=== PATIENT | female | born 1950 | race Caucasian/White ===

== ENCOUNTER 2019-03-31 23:00 | Inpatient (IN) | payer MEDICARE, OTHER, SELFPAY ==
[2019-03-31 23:04] VITALS: BP 158/97; PULSE 74; RESP 20; TEMP 36.4; O2SAT 95; BMI 29.9
--- NOTE | 2019-03-31 23:06 | ED_ITS ---
Entered by Nora Mancini, acting as scribe for Carmen Mathew HPI - Chest Pain General: Chief Complaint: Chest Pain Stated Complaint: cp Time Seen by Provider: 03/31/19 23:07 Source: patient Mode of arrival: ambulatory Limitations: no limitations History of Present Illness: HPI narrative: 69 yo f came to the er pov with family. Onset was tonight. Pt states that the last couple nights she has had some chest pain and some weakness in both arms. Pt states that she thought that it was somthing that she had been eating. Pt states that she was dripping sweat and was nauseated. Pt states that she was setting down eating. MD complaint: chest pain and other (jaw and arm pain) Onset (ago): day(s) (today) Onset: during rest Pain radiation: neck and jaw/teeth Severity: mild Pain scale (0-10): 4 Quality: aching Relieving factors: nothing Exacerbating factors: nothing Associated symptoms: Reports nausea; Deny abdominal pain, diaphoresis, dyspnea, fever(s), palpitations, syncope or vomiting Risk Factors: Coronary artery disease risk factors: none Related Data: On Oral Contraceptives: No Review of Systems General: Reports: other (negative unless marked) Const: Denies: fever, chills, body aches, fatigue, malaise or diaphoresis Eyes: Denies: change in vision or blurry vision ENMT: Denies: throat pain, painful swallowing, hoarseness, ear pain, ear discharge, Change in hearing or nasal discharge Card: Reports: chest pain; Denies: palpitations, irregular heart rhythm, syncope, pre-syncope, shortness of breath on exertion or shortness of breath when lying down Resp: Denies: shortness of breath, productive cough, non-productive cough, wheezing, coughing up blood or chest congestion GI: Reports: nausea; Denies: abdominal pain, vomiting, vomiting blood, coffee grounds in vomit, diarrhea, constipation, cramping, blood in stool or black tarry stool : Reports: flank pain; Denies: painful urination, urinary frequency, urinary urgency, decreased urine ouput, urinary incontinence or blood in urine Musc: Reports: neck pain; Denies: back pain, extremity pain, extremity swelling, joint pain, joint swelling, joint warmth or joint stiffness Skin/Breast: Denies: rash, skin tenderness or yellow skin Neuro: Denies: headache, numbness in extremities, weakness in extremities, changes in sensation, lack of coordination, difficulty walking, dizziness, vertigo or confusion Endo: Denies: excessive thirst, tired all the time, cold intolerance, excessive sweating, flushing or hot flashes Chidi/Lymph: Denies: easy bruising, easy bleeding, petechiae or enlarged lymph nodes All/Imm: Denies: hives, throat swelling, tongue swelling, facial swelling or acute wheezing PFSH ED PFSH: Statuses (acute, chronic, etc) shown below reflect problem list status as previously entered and may not be historically accurate Medical History Hypertension (Acute) Labyrinthitis (Acute) TIA (transient ischemic attack) (Acute) Surgical History Previous back surgery (Acute) Social History Smoking and tobacco status: former smoker Physical Exam Const: COMMON NORMALS: no apparent distress, oriented x3, no limitations, healthy appearing and well nourished EXAM LIMITATIONS: no altered mental status GENERAL APPEARANCE: cooperative, well kempt and well developed ORIENTATION/CONSCIOUSNESS: Yes awake HENMT: COMMON NORMALS: normocephalic, head/scalp atraumatic, hearing grossly normal bilaterally, external ears normal, EAC's normal, external nose normal and moist oral mucous membranes HEAD & SCALP: normal to inspection, normocephalic and atraumatic FACE & SINUS: normal facial exam and face symmetric NOSE: external nose normal and nares normal EXTERNAL EAR: Yes external ears normal EXTERNAL AUDITORY CANAL: EAC's normal MOUTH: oral and palatal mucosa normal and tongue normal Eye: COMMON NORMALS: PERRL, EOMs intact bilaterally, conjunctivae normal and no scleral icterus GENERAL EYE: normal appearance of both eyes and normal light reflex CONJUNCTIVA: Yes conjunctivae normal SCLERA: sclerae normal CORNEA: Yes corneas normal PUPIL: Yes PERRL DIRECT OPHTHALMOSCOPY: Yes normal light reflex Neck/C-Spine: COMMON NORMALS: full ROM, no lymphadenopathy, supple, no meningeal signs and no JVD GENERAL: Yes normal visual inspection and Yes trachea midline CERVICAL SPINE: Yes cervical ROM normal Chest: COMMONS NORMALS: inspection of chest normal and palpation of chest normal Resp: COMMON NORMALS: normal respiratory effort, no retractions, no use of accessory muscles and clear to auscultation bilaterally EFFORT & INSPECTION: Yes able to speak in complete sentences AUSCULTATION: clear to auscultation bilaterally Cardio: COMMON NORMALS: no JVD, regular rate, regular rhythm, S1 normal heart sound, S2 normal heart sound, no gallops, no clicks, no murmurs and no rub JUGULAR VENOUS DISTENTION: no JVD RATE: regular rate RHYTHM: regular rhythm HEART SOUNDS: S1 normal and S2 normal GI: COMMON NORMALS: soft to palpation, non-tender, no hepatosplenomegaly and no masses INSPECTION: Yes normal to inspection PALPATION: Yes soft and Yes no hepatosplenomegaly : COMMON NORMALS: Yes no CVA tenderness BLADDER/KIDNEY EXAM: Yes no CVA tenderness Back/Pelvis: COMMON NORMALS: no CVA tenderness, thoracic and lumbar spine normal to inspection, no thoracic nor lumbar tenderness and thoraco-lumbar ROM normal Extremity: COMMON NORMALS: normal to inspection, full ROM, normal capillary refill, no joint enlargement, no clubbing, cyanosis or edema and no calf tenderness Neuro: COMMON NORMALS: oriented x3, CN's II-XII intact bilaterally, moves all extremities, no focal motor deficits and no sensory deficits noted MENINGEAL SIGNS: Yes no meningeal signs Psych: COMMON NORMALS: mental status grossly normal, thought process normal, cooperative, affect normal, speech normal and activity/motor behavior normal APPEARANCE: Yes well kempt SPEECH: Yes normal speech THOUGHT PROCESS: normal thought process Skin: COMMON NORMALS: no rashes or lesions noted, skin turgor normal, no osito dice, no petechiae and no mottling GENERAL SKIN EXAM: no rashes or lesions noted and turgor normal Course Vital Signs: Vital signs: Vital Signs Temperature 99.6 F 04/01/19 03:40 Pulse Rate 82 04/01/19 03:40 Respiratory Rate 17 04/01/19 03:40 Blood Pressure 119/81 04/01/19 03:40 Pulse Oximetry 96 04/01/19 03:40 MDM - Chest Pain MDM Narrative: Medical decision making narrative: The patient has a story concerning for crescendo angina. I reviewed the case in full with Dr. Adams and she is agreeable to admission for further cardiac evaluation. Lab Data: Labs: Lab Results 03/31/19 03/31/19 03/31/19 Range/Units 23:30 23:30 23:30 WBC 7.2 (4.0-10.0) 10^3/ uL RBC 4.19 (4.1-5.3) 10^6/u L Hgb 12.7 (11.5-15.3) g/dL Hct 38.0 (37.0-47.0) % MCV 90.7 (81-99) fL MCH 30.3 (28.0-34.0) pg MCHC 33.4 (30.0-36.0) g/dL RDW 13.2 (12.1-15.1) % Plt Count 384 (130-400) 10^3/c mm MPV 9.6 (7.4-10.4) fL Neut % (Auto) 56.0 % Lymph % (Auto) 31.3 % Weld % (Auto) 7.4 % Eos % (Auto) 4.6 % Baso % (Auto) 0.4 % Neut # (Auto) 4.0 (1.8-7.7) 10^3/u L Lymph # (Auto) 2.3 (0.8-4.8) 10^3/u L Weld # (Auto) 0.5 (0.2-0.9) 10^3/u L Eos # (Auto) 0.3 (0.0-0.8) 10^3/u L Baso # (Auto) 0.0 (0.0-0.1) 10^3/u L Nucleated RBC % (a uto) 0 % Nucleated RBCs # 0.0 /100WBC Sodium 136 (136-145) mmol/L Potassium 4.0 (3.5-5.1) mmol/L Chloride 98 (98-107) mmol/L Carbon Dioxide 24 (22-29) mmol/L Anion Gap 18.0 (5-19) BUN 23 (8-23) mg/dL Creatinine 1.1 H (0.5-0.9) mg/dL Glucose 108 H (74-106) mg/dL Calcium 10.4 H (8.8-10.2) mg/Dl Total Bilirubin 0.2 (0.15-1.2) mg/dL AST 15 (0-32) U/L ALT 17 (0-33) U/L Alkaline Phosphata se 52 (35-105) IU/L Troponin T Baselin e 65 H (0-10) ng/mL NT-Pro-B Natriuret Pep 255 H (0-125) pg/mL Total Protein 6.6 (6.6-8.7) g/dL Albumin 4.5 (3.5-5.2) g/dL Globulin 2.1 (1.3-4.6) g/dL Lipase 53 (13-60) U/L Urine Color (Yellow) Urine Appearance (CLEAR) Urine pH (5-7) Ur Specific Gravit y (1.005-1.030) Urine Protein (Negative) Urine Glucose (UA) (Normal) Urine Ketones (Negative) Urine Occult Blood (Negative) Urine Nitrate (Negative) Urine Bilirubin (NEGATIVE) Urine Urobilinogen (Negative) mg/dL Ur Leukocyte Jennifer ase (Negative) Urine RBC (0-2) /hpf Urine WBC (0-5) /hpf Ur Squamous Epith Cells (0-5) Urine Bacteria (NONE) 03/31/19 Range/Units 23:45 WBC (4.0-10.0) 10^3/ uL RBC (4.1-5.3) 10^6/u L Hgb (11.5-15.3) g/dL Hct (37.0-47.0) % MCV (81-99) fL MCH (28.0-34.0) pg MCHC (30.0-36.0) g/dL RDW (12.1-15.1) % Plt Count (130-400) 10^3/c mm MPV (7.4-10.4) fL Neut % (Auto) % Lymph % (Auto) % Weld % (Auto) % Eos % (Auto) % Baso % (Auto) % Neut # (Auto) (1.8-7.7) 10^3/u L Lymph # (Auto) (0.8-4.8) 10^3/u L Weld # (Auto) (0.2-0.9) 10^3/u L Eos # (Auto) (0.0-0.8) 10^3/u L Baso # (Auto) (0.0-0.1) 10^3/u L Nucleated RBC % (a uto) % Nucleated RBCs # /100WBC Sodium (136-145) mmol/L Potassium (3.5-5.1) mmol/L Chloride (98-107) mmol/L Carbon Dioxide (22-29) mmol/L Anion Gap (5-19) BUN (8-23) mg/dL Creatinine (0.5-0.9) mg/dL Glucose (74-106) mg/dL Calcium (8.8-10.2) mg/Dl Total Bilirubin (0.15-1.2) mg/dL AST (0-32) U/L ALT (0-33) U/L Alkaline Phosphata se (35-105) IU/L Troponin T Baselin e (0-10) ng/mL NT-Pro-B Natriuret Pep (0-125) pg/mL Total Protein (6.6-8.7) g/dL Albumin (3.5-5.2) g/dL Globulin (1.3-4.6) g/dL Lipase (13-60) U/L Urine Color Yellow (Yellow) Urine Appearance Cloudy (CLEAR) Urine pH 5 (5-7) Ur Specific Gravit y 1.030 (1.005-1.030) Urine Protein Trace (Negative) Urine Glucose (UA) Norm (Normal) Urine Ketones 1+ H (Negative) Urine Occult Blood Neg (Negative) Urine Nitrate Negative (Negative) Urine Bilirubin Neg (NEGATIVE) Urine Urobilinogen Norm (Negative) mg/dL Ur Leukocyte Jennifer ase Negative (Negative) Urine RBC 25-40 H (0-2) /hpf Urine WBC 5-10 H (0-5) /hpf Ur Squamous Epith Cells 25-40 H (0-5) Urine Bacteria 1+ H (NONE) EKG Data^: EKG 1: Attestation: I personally reviewed and interpreted this EKG as follows: (EKG at 2307?normal sinus rhythm at 74 beats a minute, nonspecific ST-T wave changes, artifact present.) Discharge Plan Discharge Patient Disposition: Admitted As Inpatient Admit Provider: Elena Adams Clinical Impression: Chest pain Condition: Stable Interventions: ED Discharge Assessment Last Done: 04/01/19 01:12 Discharge Date/Time: 04/01/19 01:13 Coding Level of Care Code ED Student Services Vice President for Chg Fwd Exam Problem Focused The documentation recorded by the Live estrada Stephanie Lyn, accurately reflects the service I personally performed and the decisions made by me, Carmen Mathew Mar 31, 2019 23:00
--- NOTE | 2019-03-31 23:16 | XRR_ITS ---
PROCEDURE INFORMATION: Exam: XR Chest, 1 View Exam date and time: 03/31/2019 11:37 PM Age: 69 years old Clinical indication: Chest pain TECHNIQUE: Imaging protocol: XR of the chest Views: 1 view. COMPARISON: CR Chest 1 [place] [id number] 02/07/2017 6:09 PM FINDINGS: Lungs: Hyperinflation and mild basilar airspace disease. Pleural space: No pleural effusion. Heart/Mediastinum: Epicardial fat accentuates the cardiac silhouette. Bones/joints: Mild degenerative change. XR/XR chest 1V portable [id number] IMPRESSION: Hyperinflation and mild basilar airspace disease.
--- NOTE | 2019-03-31 23:17 | ECG_ITS ---
Measurements Intervals [place] Rate: 74 P: 54 [place]: 184 QRS: 7 QRSD: 97 T: 8 QT: 376 QTc: 419 SINUS RHYTHM LOW QRS VOLTAGE IN PRECORDIAL LEADS [QRS DEFLECTION < 1.0 mV IN CHEST LEADS] MINIMAL ST DEPRESSION [0.025+ mV ST DEPRESSION] INTERPRETATION BASED ON A DEFAULT AGE OF 40 YEARS Compared to ECG 02/07/2017 21:11:10 Low QRS voltage now present ST (T wave) deviation now present Electronically Signed On 04-01-2019 9:33:22 CUSTOMS HOUSE BROKER by Vincent Davila M.D. [id number]
[2019-03-31 23:33] LABS: Basophils % 0.4 %; Eosinophils # 0.3 10^3/uL (0.0-0.8); Eosinophils % 4.6 %; Hemoglobin 12.7 g/dL (11.5-15.3); Lymphocytes # 2.3 10^3/uL (0.8-4.8); Lymphocytes % 31.3 %; Mean Corpuscular HGB Conc 33.4 g/dL (30.0-36.0); Mean Corpuscular Hemoglobin 30.3 pg (28.0-34.0); Mean Corpuscular Volume 90.7 fL (81-99); Mean Platelet Volume 9.6 fL (7.4-10.4); Monocytes # 0.5 10^3/uL (0.2-0.9); Monocytes % 7.4 %; Nucleated Red Blood Cells % 0 %; Platelet Count 384 10^3/cmm (130-400); Red Blood Count 4.19 10^6/uL (4.1-5.3); Red Cell Distribution Width 13.2 % (12.1-15.1); White Blood Count 7.2 10^3/uL (4.0-10.0)
[2019-03-31] MEDS: aspirin 81 mg Chew Tablet 324 MG PO (23:46)
[2019-03-31 23:47] LABS: Troponin(5th) Baseline 65 ng/mL (0-10)
[2019-04-01] VITALS (11 sets, daily range): BP systolic 116–158; BP diastolic 71–97; PULSE 75–95; RESP 16–20; TEMP 36.4–37.6; O2SAT 93–98
[2019-04-01] MEDS: sodium chloride 0.9% 500 ML 999 ML IV (00:10)
[2019-04-01 00:16] LABS: Alanine Aminotransferase 17 U/L (0-33); Albumin Level 4.5 g/dL (3.5-5.2); Alkaline Phosphatase 52 IU/L (35-105); Aspartate Amino Transferase 15 U/L (0-32); Blood Urea Nitrogen 23 mg/dL (8-23); Calcium 10.4 mg/Dl (8.8-10.2); Carbon Dioxide 24 mmol/L (22-29); Chloride 98 mmol/L (98-107); Globulin 2.1 g/dL (1.3-4.6); Glucose 108 mg/dL (74-106); Lipase 53 U/L (13-60); NT Pro B Type Natriuretic Pept 255 pg/mL (0-125); Sodium 136 mmol/L (136-145); Total Bilirubin 0.2 mg/dL (0.15-1.2); Total Protein 6.6 g/dL (6.6-8.7)
[2019-04-01 00:49] LABS: Add Urine Culture? No; Add Urine Microscopic? YES; Bacteria Urine 1+; Bilirubin Urine Neg (NEGATIVE); Blood Urine Neg (Negative); Glucose Urine UA Norm (Normal); Ketones Urine 1+ (Negative); Leukocyte Esterase Urine Negative (Negative); Nitrate Urine Negative (Negative); Protein Urine Trace (Negative); RBC Urine 25-40 /hpf (0-2); Squamous Epithelial Cell Urine 25-40 (0-5); Urine Appearance Cloudy (CLEAR); Urine Color Yellow (Yellow); Urobilinogen Urine Norm (Negative); pH Urine 5 (5-7)
--- NOTE | 2019-04-01 01:17 | ECG_ITS ---
Measurements Intervals [place] Rate: 78 P: 70 [place]: 179 QRS: -9 QRSD: 101 T: 44 QT: 388 QTc: [address] DEPRESSION [0.025+ mV ST DEPRESSION] Compared to ECG 02/07/2017 21:11:10 ST (T wave) deviation now present Electronically Signed On 04-01-2019 9:34:45 BABBITT SPINNER by Vincent Davila M.D. [id number]
--- NOTE | 2019-04-01 01:24 | CTR_ITS ---
PROCEDURE INFORMATION: Exam: CT Abdomen And Pelvis Without Contrast Exam date and time: 04/01/2019 7:50 AM Age: 69 years old Clinical indication: Abdominal pain; Acute TECHNIQUE: Imaging protocol: Computed tomography of the abdomen and pelvis without contrast. Total DLP: 1018.73 mGy-cm Radiation optimization: All CT scans at this facility use at least one of these dose optimization techniques: automated exposure control; mA and/or kV adjustment per patient size (includes targeted exams where dose is matched to clinical indication); or iterative reconstruction. COMPARISON: No relevant prior studies available. FINDINGS: Detailed evaluation of the abdominal and pelvic viscera is somewhat limited in the absence of intravenous contrast. Lungs: Mild interstitial prominence. 2-4 mm right lower lobe nodules. For patients at low risk (minimal or absent history of smoking and of other known risk factors), no routine follow-up is indicated. For patients at high risk (history of smoking or of other known risk factors), consider optional CT Chest at 12 months. MacMahojosue H, Fleischner Society, 2017. Liver: No focal hepatic mass. Gallbladder and bile ducts: Questionable cholelithiasis, which can be better evaluated with ultrasound as clinically indicated. No biliary ductal dilatation. Pancreas: No pancreatic mass or ductal dilatation. Spleen: Splenic granulomata. Adrenals: Subtle left adrenal nodularity. Kidneys and ureters: Normal renal morphology. No hydronephrosis. Stomach and bowel: Questionable wall thickening in the nondistended stomach. 8mm nodular radiopaque density in the lumen of the jejunum. No significant small bowel dilatation. Prominent stool. Diverticula, without pericolonic inflammation. Appendix: Appendix not visualized. Intraperitoneal space: No significant free fluid. Vasculature: Vascular calcification. Normal caliber of the abdominal aorta. Lymph nodes: Subcentimeter lymph nodes. Bladder: Nondistended bladder with extrinsic compression of the bladder dome by the uterus. Reproductive: Enlargement of the postmenopausal uterus with calcifications suggesting underlying fibroids. Bones/joints: Degenerative change, discogenic sclerosis, and lumbar levoscoliosis. CT/CT abdomen pelvis wo con [id number] IMPRESSION: 1. Questionable cholelithiasis, which can be better evaluated with ultrasound as clinically indicated. 2. Enlargement of the postmenopausal uterus with calcifications suggesting underlying fibroids. 3. Additional findings as described above. Radiation Dose CTDIVOL = (mGy): DLP = 1018.73 (mGy-cm)
[2019-04-01 02:18] LABS: Troponin 5 2HR 81.14 ng/mL (0-10)
[2019-04-01 02:22] LABS: Troponin 5 2HR Delta 16.14 ABS# (0-10)
[2019-04-01] MEDS: sodium chloride 0.9% 1,000 ML 100 ML IV ×2 (02:48→15:56)
--- NOTE | 2019-04-01 04:08 | P.HP_ITS ---
Providers/Chief Complaint Admitting Physician: Elena Adams MD Primary Care Provider: Helen Jansen MD Chief Complaint: cp History of Present Illness Gisele Ramos is a 69 year old female with PMHx of HTN, Hyperlipidemia, Depression, Hypothyroidism, TIA; presents to the ER accompanied by her for evaluation of chest pain that occurred after supper tonight. This is the second episode that she has had, first episode occurred approximately 2 nights ago after she had had her dinner. She initially thought that this was reflux and due to what she had eaten so today she had oatmeal and a piece of toast and approximately 2 hours after her meal she noticed substernal chest discomfort with some radiation up into the bilateral neck area and heaviness in both her arms. She felt like she had a hot flash and due to concern that this might be something going on with her heart she presented to the ER. Upon her arrival her symptoms had resolved. She does not seem to have any episodes during the daytime and prior to 2 nights ago had not had any issues with chest pain or chest discomfort. She is resting comfortably on the stretcher with the at bedside during my assessment in the ER. Labs indicate a normal CBC, normal chemistry, BUN of 23, creatinine of 1.1, BNP of 255, noted delta of 16 and her 2-hour gen 5 troponin. She is completely chest pain-free during my assessment. Vital signs are stable. Chest x-ray report is pending but primary view does not show any acute findings. She received IV fluid hydration, nitroglycerin, full dose aspirin and Zofran. Her symptoms seem very suspicious for atypical chest pain but given her age, positive family history of CAD, history of hypertension and hyperlipidemia, will need to be observed further. Also discussed possibility of outpatient stress testing as we do not have this available today; patient is agreeable to this if necessary. She has had prior treadmill stress testing several years ago which was negative for any ischemia. Review of Systems Const: Denies: fever, chills, fatigue or malaise Eyes: Denies: change in vision ENMT: Denies: painful swallowing or dry mouth Card: Reports: chest pain; Denies: palpitations, swelling of feet/ankles, lightheadedness, syncope, pre- syncope or shortness of breath on exertion Resp: Denies: shortness of breath, productive cough or non-productive cough GI: Denies: abdominal pain, nausea, vomiting, vomiting blood or blood in stool : Reports: urinary frequency; Denies: difficulty urinating or painful urination Musc: Reports: neck pain; Denies: back pain Skin/Breast: Denies: rash Neuro: Reports: weakness in extremities (Bilateral upper extremities); Denies: numbness in extremities Psych: Denies: anxiety Medications/Allergies Home Medications Medication Instructions Recorded Confirmed Last Taken Type HRT Cream Base Women 4 mg TOPICAL DAILY 03/31/19 03/31/19 Unknown History aspirin 81 mg PO DAILY 03/31/19 03/31/19 Unknown History levothyroxine 50 mcg PO DAILY 03/31/19 03/31/19 Unknown History metoprolol tartrate 25 mg PO BID 03/31/19 03/31/19 Unknown History venlafaxine [Effexor XR] 150 mg PO BID 03/31/19 03/31/19 Unknown History Allergies Allergy/AdvReac Type Severity Reaction Status Date / Time codeine Allergy ADR-Headach Verified 03/31/19 23:13 e PFSH Acute PFSH: Statuses (acute, chronic, etc) shown below reflect problem list status as previously entered and may not be historically accurate Medical History (Updated 04/01/19 @ 04:24 by Elena Adams MD) CKD (chronic kidney disease) stage 2, GFR 60-89 ml/min (Acute) Depression (Acute) Hyperlipidemia (Acute) Hypertension (Acute) Hypothyroidism (Acute) Labyrinthitis (Acute) TIA (transient ischemic attack) (Acute) Surgical History (Updated 04/01/19 @ 04:16 by Elena Adams MD) H/O section (Acute) Previous back surgery (Acute) Family History (Updated 04/01/19 @ 04:17 by Elena Adams MD) Mother CAD (coronary artery disease) Father Abdominal aortic aneurysm Social History (Updated 04/01/19 @ 04:17 by Elena Adams MD) Smoking and tobacco status: former smoker Quit status (tobacco): has quit using tobacco Year quit tobacco: 2012 Alcohol intake: never Substance/Drug Use: never Lives independently: Yes Household members: spouse Housing: House Vitals/I&O/Wt Last Vital Signs Temp 99.6 F 04/01/19 03:40 Pulse 82 04/01/19 03:40 Resp 17 04/01/19 03:40 BP 119/81 04/01/19 03:40 Pulse Ox 96 04/01/19 03:40 Weight last 48 hrs Weight 74.389 kg Physical Exam Const: COMMON NORMALS: no apparent distress and oriented x3 GENERAL APPEARANCE: cooperative and comfortable ORIENTATION/CONSCIOUSNESS: Yes awake HENMT: COMMON NORMALS: normocephalic, head/scalp atraumatic, hearing grossly normal bilaterally and moist oral mucous membranes HEAD & SCALP: normocephalic and atraumatic Eye: COMMON NORMALS: PERRL, EOMs intact bilaterally and conjunctivae normal CONJUNCTIVA: Yes conjunctivae normal PUPIL: Yes PERRL Neck/C-Spine: COMMON NORMALS: full ROM GENERAL: Yes normal visual inspection and Yes trachea midline Resp: COMMON NORMALS: normal respiratory effort, no retractions, no use of accessory muscles and clear to auscultation bilaterally EFFORT & INSPECTION: Yes able to speak in complete sentences, Yes symmetric chest movement and No tachypneic AUSCULTATION: clear to auscultation bilaterally Cardio: COMMON NORMALS: regular rate, regular rhythm, S1 normal heart sound, S2 normal heart sound and no murmurs RATE: regular rate RHYTHM: regular rhythm HEART SOUNDS: S1 normal and S2 normal GI: COMMON NORMALS: normal to inspection, nondistended, normoactive bowel sounds, soft to palpation and non-tender PALPATION: Yes soft Extremity: COMMON NORMALS: normal to inspection, full ROM and no clubbing, cyanosis or edema; negative for no pedal edema Neuro: COMMON NORMALS: oriented x3, moves all extremities, no focal motor deficits, no sensory deficits noted and gait normal Psych: COMMON NORMALS: mental status grossly normal, thought process normal, cooperative, affect normal and speech normal SPEECH: Yes normal speech THOUGHT PROCESS: normal thought process Skin: COMMON NORMALS: no rashes or lesions noted, no jaundice, no petechiae and no mottling GENERAL SKIN EXAM: no rashes or lesions noted Data : 03/31/19 23:30 03/31/19 23:30 A&P Assessment and plan (1) Chest pain: -From description seems like atypical chest pain, potentially secondary to GERD but patient has risk factors for CAD including history of hypertension, hyperlipidemia, age, gender and positive family history -Serial troponins, EKGs -Telemetry monitoring -Monitor vital signs -DOUG -If suspicious for possible ischemia may require stress testing which can be arranged as an outpatient -risk stratify with A1c, TSH, lipid panel -add PPI Status: Acute Qualifiers: Chest pain type: precordial pain Qualified Code(s): R07.2 - Precordial pain Code(s): R07.9 - Chest pain, unspecified (2) Hypertension: -monitor vital signs -resume oral antihypertensives once med rec done Status: Acute Qualifiers: Hypertension type: essential hypertension Qualified Code(s): I10 - Essential (primary) hypertension Code(s): I10 - Essential (primary) hypertension Additional A&P Information -CKD stage 2-3; baseline Cr wnl -Hyperlipidemia -hx of TIA -Hypothyroidism -cardiac diet as tolerated -ambulate as tolerated -GI ppx with PPI -low risk for DVT so no ppx -Dispo: home -Code status: FULL code Attestations Medical Necessity Statement*: Gisele Ramos's hospital stay will be less than 2 midnights for management of chest pain requiring rule out ACS workup. Time Spent in Patient Care: Greater than 35 minutes (>than 50% of time spent in counselling and/or direct pt care on unit) . Coding Level of Care Code Acute Research Food Technologist for Antonyg Fwd Diagnoses Chest pain R07.2 Chest pain type: precordial pain Hypertension I10 Hypertension type: essential hypertension
--- NOTE | 2019-04-01 05:17 | ECG_ITS ---
Measurements Intervals [place] Rate: 76 P: 68 [place]: 180 QRS: 5 QRSD: 93 T: 31 QT: 400 QTc: 450 SINUS RHYTHM Compared to ECG 02/07/2017 21:11:10 No significant changes Electronically Signed On 04-01-2019 9:36:49 OCEANOGRAPHER ASSISTANT by Vincent Davila M.D. [id number]
[2019-04-01 05:54] LABS: Basophils % 0.4 %; Eosinophils # 0.3 10^3/uL (0.0-0.8); Lymphocytes # 2.3 10^3/uL (0.8-4.8); Lymphocytes % 25.8 %; Mean Corpuscular HGB Conc 33.3 g/dL (30.0-36.0); Mean Corpuscular Hemoglobin 29.9 pg (28.0-34.0); Mean Corpuscular Volume 89.8 fL (81-99); Mean Platelet Volume 9.6 fL (7.4-10.4); Monocytes # 0.6 10^3/uL (0.2-0.9); Monocytes % 6.5 %; Neutrophils # 5.7 10^3/uL (1.8-7.7); Nucleated Red Blood Cells % 0 %; Platelet Count 372 10^3/cmm (130-400); Red Blood Count 4.01 10^6/uL (4.1-5.3); Red Cell Distribution Width 13.1 % (12.1-15.1); White Blood Count 8.9 10^3/uL (4.0-10.0)
[2019-04-01 06:14] LABS: Troponin 5 6HR 98.67 ng/L (0-10)
[2019-04-01 06:16] LABS: Anion Gap 15.2 (5-19); Blood Urea Nitrogen 21 mg/dL (8-23); Carbon Dioxide 24 mmol/L (22-29); Chloride 102 mmol/L (98-107); Chol HDL Ratio 6.43 mg/dL (0.0-4.40); Cholesterol 238 mg/dL (0-200); Glucose 104 mg/dL (74-106); HDL Cholesterol 37 mg/dL (60-100); LDL Cholesterol Calculated 140 mg/dL (50-129); LDL HDL Ratio 3.78 RATIO (0.00-3.22); Potassium 4.2 mmol/L (3.5-5.1); Sodium 137 mmol/L (136-145); Thyroid Stimulating Hormone 3.02 uIU/mL (0.27-4.20); Triglycerides 306 mg/dL (0-150); Troponin 5 6HR Delta 33.67 ng/L (0-12)
[2019-04-01 06:41] LABS: Estmated Average Glucose 105; Hemoglobin A1C 5.3 % (4.0-6.0)
[2019-04-01] MEDS: pantoprazole DR 40 mg Tablet PO (10:06)
--- NOTE | 2019-04-01 11:20 | ECG_ITS ---
Measurements Intervals [place] Rate: 73 P: 43 [place]: 170 QRS: -15 QRSD: 104 T: -7 QT: 406 QTc: 448 SINUS RHYTHM LOW QRS VOLTAGE IN PRECORDIAL LEADS [QRS DEFLECTION < 1.0 mV IN CHEST LEADS] Compared to ECG 04/01/2019 05:00:13 Low QRS voltage now present Electronically Signed On 04-02-2019 17:18:36 TRIMMER AND REINFORCER by Vincent Davila M.D. [id number]
[2019-04-01] MEDS: nitroglycerin 0.4 mg sublingual Tablet SUBLINGUAL (11:26)
[2019-04-01] MEDS: aspirin 325 mg EC Tablet PO (11:53)
[2019-04-01] MEDS: acetaminophen 325 mg Tablet 650 MG PO ×2 (11:53→21:04)
--- NOTE | 2019-04-01 13:28 | PC.CHAP ---
Pastoral Care Encounter/Spiritual Assessment Type of Contact [] Declined road crossing guard visit [] Patient/Family/Request visit [] Outpatient visit [] Follow-up visit [] Physician referral [] Code/Alert [] Routine visit [] Staff referral [] Actively dying [] Patient sleeping [] Family support [] [] Out of room [] Palliative care [] [] Receiving care in room [] Pre-surgical visit [] Trauma [] Long length of stay [] ICU visit [] Other: Relational/Emotional Strength [] Patient feels connected with others/family/visitors/staff [] Distress [] Loneliness/isolation [] Abandonment Spirituality of Patient [] Person of Linnette [] Attends Episcopalian of their [place] [] Believes in Prayer [] Reads Bible or Worship materials [] There are Spiritual issues to be addressed Dictaphone Transcriber Interventions [] Prayer [] Active listening [] Non-anxious presence [] Spiritual/emotional support [] Crisis/trauma care [] Spiritual counseling [] Bereavement support [] Provided bereavement packet [] Provided Bible/devotional materials [] Provided toy/stuffed animal, coloring book to patient or family member [] Completed spiritual assessment [] Provided Communion [] Anointing/[place] [] Salvation [] Other: Impact on Illness or Injury [] Angry [] Fearful [] Anxious [] Often cries [] Exhaustion [] Unable to work [] Unable to attend scientology [] Unable to walk/stand [] Unable to read [] Unable to drive [] Unable to eat/drink [] Unable to sleep [] Unable to be with family [] Other: Summary Follow up, patient not in room. Time spent with patient
--- NOTE | 2019-04-01 18:15 | PM.PN ---
Subjective Subjective: Interval history: Request to have her proximal team and HRT restarted. Her is bringing her HRT. Denies pain. Vitals/I&O/Wt Last Vital Signs Temp 98.1 F 04/01/19 16:00 Pulse 86 04/01/19 16:00 Resp 16 04/01/19 16:00 BP 131/87 04/01/19 16:00 Pulse Ox 96 04/01/19 16:00 04/01/19 04/01/19 04/01/19 06:59 14:59 22:59 Intake Total 1600 / 1600 480 / 2080 Output Total 400 / 400 600 / 600 200 / 800 Balance -400 / -400 1000 / 1000 280 / 1280 Weight last 48 hrs Weight 74.389 kg Physical Exam Const: COMMON NORMALS: no apparent distress and oriented x3 HENMT: COMMON NORMALS: oropharynx normal Neck/C-Spine: COMMON NORMALS: no JVD Resp: COMMON NORMALS: normal respiratory effort and clear to auscultation bilaterally AUSCULTATION: clear to auscultation bilaterally Cardio: COMMON NORMALS: no JVD, regular rhythm, S1 normal heart sound, S2 normal heart sound and no murmurs RHYTHM: regular rhythm HEART SOUNDS: S1 normal and S2 normal GI: COMMON NORMALS: normal to inspection, nondistended, normoactive bowel sounds, soft to palpation and non-tender PALPATION: Yes soft Extremity: COMMON NORMALS: no joint enlargement and no pedal edema Neuro: COMMON NORMALS: oriented x3 and moves all extremities Skin: COMMON NORMALS: no rashes or lesions noted GENERAL SKIN EXAM: no rashes or lesions noted Data : 04/01/19 05:22 04/01/19 05:22 A&P Assessment and plan (1) Chest pain: Typical chest pain with risk factors for coronary disease. Troponin leak noted. Currently asymptomatic. Discussed with her due to risk factors, some troponin abnormality, she is agreeable for additional risk stratification by stress testing tomorrow. Start statin. Beta-rosa. Status: Acute Qualifiers: Chest pain type: precordial pain Qualified Code(s): R07.2 - Precordial pain Code(s): R07.9 - Chest pain, unspecified (2) Hypertension: At goal. Status: Acute Qualifiers: Hypertension type: essential hypertension Qualified Code(s): I10 - Essential (primary) hypertension Code(s): I10 - Essential (primary) hypertension Additional A&P Information -CKD stage 2-3; baseline Cr wnl -Hyperlipidemia -hx of TIA -Hypothyroidism Attestations Medical Necessity Statement*: Continue admission for assessment of chest pain episode with risk factors for coronary disease. Coding Level of Care Code Acute Family Development Specialist for [facility] Fwd Diagnoses Chest pain R07.2 Chest pain type: precordial pain Hypertension I10 Hypertension type: essential hypertension
[2019-04-01] MEDS: metoprolol tartrate 25 mg Tablet PO (18:34)
[2019-04-02] VITALS (9 sets, daily range): BP systolic 112–145; BP diastolic 66–86; PULSE 74–102; RESP 16–20; TEMP 36.4–37.1; O2SAT 96–99
[2019-04-02] MEDS: sodium chloride 0.9% 1,000 ML 100 ML IV ×3 (00:57→17:18)
[2019-04-02 05:34] LABS: Basophils % 0.4 %; Eosinophils # 0.4 10^3/uL (0.0-0.8); Hematocrit 39.3 % (37.0-47.0); Hemoglobin 13.1 g/dL (11.5-15.3); Lymphocytes # 2.2 10^3/uL (0.8-4.8); Lymphocytes % 30.9 %; Mean Corpuscular HGB Conc 33.3 g/dL (30.0-36.0); Mean Corpuscular Hemoglobin 31.3 pg (28.0-34.0); Mean Corpuscular Volume 93.8 fL (81-99); Mean Platelet Volume 9.7 fL (7.4-10.4); Monocytes # 0.5 10^3/uL (0.2-0.9); Monocytes % 7.3 %; Neutrophils # 3.9 10^3/uL (1.8-7.7); Nucleated Red Blood Cells % 0 %; Platelet Count 366 10^3/cmm (130-400); Red Blood Count 4.19 10^6/uL (4.1-5.3); Red Cell Distribution Width 13.3 % (12.1-15.1)
[2019-04-02 05:51] LABS: Alanine Aminotransferase 13 U/L (0-33); Albumin Level 3.7 g/dL (3.5-5.2); Alkaline Phosphatase 44 IU/L (35-105); Anion Gap 15.2 (5-19); Aspartate Amino Transferase 15 U/L (0-32); Blood Urea Nitrogen 14 mg/dL (8-23); Calcium 9.4 mg/Dl (8.8-10.2); Carbon Dioxide 25 mmol/L (22-29); Chloride 106 mmol/L (98-107); Globulin 2.9 g/dL (1.3-4.6); Glucose 102 mg/dL (74-106); Potassium 4.2 mmol/L (3.5-5.1); Sodium 142 mmol/L (136-145); Total Bilirubin 0.3 mg/dL (0.15-1.2); Total Protein 6.6 g/dL (6.6-8.7)
--- NOTE | 2019-04-02 06:55 | SUR.PREOP ---
NO PAIN REPORTED AT THE TIME OF INTAKE ASSESSMENT.
--- NOTE | 2019-04-02 06:56 | ECG_ITS ---
NAME OF STUDY: LEXISCAN SESTAMIBI STRESS TEST INDICATION: Chest Pain;NUCLEAR DOSE 30.7 mCi PROCEDURE: At the baseline, the EKG revealed normal sinus rhythm with a poor R wave progression. Low voltage complexes in the precordial leads. Nonspecific T wave changes in the inferolateral leads. The baseline blood pressure was 136/74 mm Hg with a heart rate of 72 beats/min. Lexiscan was infused over a period of 20 seconds. A total of 0.4 milligrams of Lexiscan was infused. The stress phase was continued for a total of 5 minutes. Heart rate at the end of the stress phase was 90 with a blood pressure 147/68. The EKG at the peak infusion revealed no significant changes. Sestamibi was injected 20 seconds after the Lexiscan infusion. Blood pressure at the end of the recovery phase was 133/70 with a heart rate of 88 per minute. CONCLUSION: 1. No significant EKG changes with the LexiScan infusion 2. No LexiScan induced chest pain or cardiac arrhythmia 3. Normal blood pressure and heart rate response 4. Sestamibi/sestamibi perfusion scan pending; see separate report. Electronically Signed On 04-03-2019 22:17:04 RADIO OPERATOR by Jose Hinton M.D. [email or web address]
[2019-04-02] MEDS: levothyroxine 50 mcg Tablet PO (10:44)
[2019-04-02] MEDS: aspirin 325 mg EC Tablet PO (10:44)
[2019-04-02] MEDS: venlafaxine ER (24HR) 150 mg Capsule PO ×2 (10:45→17:14)
[2019-04-02] MEDS: metoprolol tartrate 25 mg Tablet PO ×2 (10:45→17:14)
[2019-04-02] MEDS: pantoprazole DR 40 mg Tablet PO (10:45)
[2019-04-02] MEDS: regadenoson 0.4 Mg/5 ml Syringe IVP (11:34)
[2019-04-02] MEDS: acetaminophen 325 mg Tablet 650 MG PO ×2 (13:54→23:06)
--- NOTE | 2019-04-02 14:18 | ECG_ITS ---
Measurements Intervals [place] Rate: 75 P: 43 NM: 181 QRS: -8 QRSD: 81 T: -9 QT: 361 QTc: [address] DEPRESSION [0.025+ mV ST DEPRESSION] Compared to ECG 04/01/2019 05:00:13 ST (T wave) deviation now present Electronically Signed On 04-02-2019 17:25:46 METER READING CLERK by Vincent Davila M.D. [email or web address]
--- NOTE | 2019-04-02 14:21 | PC.NURSE ---
PATIENT REPORTED HAVING CHEST PAIN AT A 5 OUT OF 10 ON PAIN SCALE. ASKED THE PATIENT IF SHE WANTED NITROGLYCERIN AND AFTER SOME CONTEMPLATION, SHE WAS ADMINISTERED 1 NITROGLYCERIN TAB. VITAL SIGNS STABLE AND PAIN DECREASE TO A 3. WILL CONTINUE TO MONITOR. PHYSICIAN NOTIFIED OF INCIDENT.
--- NOTE | 2019-04-02 18:14 | NMCV_ITS ---
Gisele Ramos Age: 69 Gender: F : 1950 Exam Date: 04/02/2019 10:37 Ordering Phys: Dallas Walters MD Technologist: JASON Desai Exam Location: [facility] Indications: Chest pain STRESS TEST Please see separate stress test report in [facility] for full findings IMAGE PROTOCOL Rest/Stress 1 Lexiscan Day Radiopharmaceutical Dose (mCi) Administration Site Administered by Rest: Tc-99m 10.4 IV Berna Reed, JASON Sestamibi Stress:Tc-99m 30.7 IV Berna Carljersey, RAISIN SEPARATOR OPERATOR Sestamibi Rest: 02-Apr-2019 60 Discovery 630 Stress: 02-Apr-2019 Discovery 630 0.4mg Lexiscan. Images obtained in supine and prone position. SPECT RESULTS Technical Quality: Good Raw Data Analysis: Normal, Breast attenuation, Soft tissue attenuation. 46C Chest Wall Image Corrections: Summed Stress Score: 3 Summed Rest Score: 2 Summed Difference Score: 1 PERFUSION FINDINGS Small to moderate area decreases uptake was noted in the basal and mid inferolateral region, with significant reversibility FUNCTIONAL RESULTS (calculated via Gated SPECT) Stress Image LV EF (%): 79 Stress EDV (mL):58 TID: 1 Stress ESV (mL):12 FUNCTIONAL FINDINGS: Segmental wall analysis revealed no gross wall motion normalities. IMPRESSIONS 1. Myocardial perfusion by revealing small to moderate area of decreased tracer uptake in the basal and mid inferolateral region, with some reversibility, suggestive of ischemia in the distribution of the left circumflex artery. 2. Normal LV ejection fraction 79%. 3. LV wall motion analysis revealing no gross wall motion normalities. 4. Normal LV volume. No similar previous studies are available for comparison Dr Jose Hinton MD [facility] (Electronically Signed) Final Date: 02 April 2019 17:06 S
--- NOTE | 2019-04-02 18:53 | P.CONIM_ITS ---
Providers/Reason For Consult Consulting Physican/Specialty*: Jenaro Hinton MD/cardiology Reason for Consult*: Patient with chest pain and abnormal myocardial perfusion imaging Attending Physician: Dallas Walters Primary Care Provider: Helen Jansen MD History of Present Illness History of Present Illness Gisele Ramos is a 69 year old female with a history of hypertension, dyslipidemia, is admitted to the hospital with a prolonged episode of chest pain. Myocardial infarction was ruled out. She had a myocardial perfusion imaging today. Perfusion scan was abnormal. Cardiology consult is requested for further cardiac evaluation recommendations. Patient has no previous history for coronary disease, myocardial infarction or congestive heart failure. She has a history of chest pain off and on. She had a stress test many years ago and was unremarkable. On the day of admission, she had an episode of chest pain while she was getting ready to go to bed. The pain was upper substernal, radiating across the chest, to both sides of the neck and also down to both arms. She had associated shortness of breath nausea and sweating. The pain middle lasted for an hour or so. Intensity was moderate to severe. For this reason, she came to the emergency room. In the emergency room, the troponin T was negative. She had some nonspecific EKG changes. She is admitted to the hospital for further evaluation and management. While being in the hospital, she had some episodes of chest discomfort. According the patient, she had chest pains usually after a meal. This evening also, she had an episode of chest pain after her meal. She took 1 sublingual nitroglycerin. The pain went away. At the time of my examination, patient is pain-free. Her mother had a coronary artery disease and had a open heart surgery in her 70s. Apparently after the surgery, she had some complications and of? Heart attack. No other relevant family history. She has history of hypertension, dyslipidemia, depressive illness and hypothyroidism. Review of Systems Const: Reports: other (Anorexia); Denies: fever, chills, change in appetite, fatigue or night sweats Eyes: Denies: change in vision, blurry vision or eye discomfort ENMT: Denies: bleeding gums, nose bleeds or other (Spinning Sensation, Trouble Swallowing) Card: Denies: syncope, pre-syncope, shortness of breath when lying down or leg pain with exertion Resp: Denies: productive cough, change in phlegm color or coughing up blood GI: Denies: vomiting, vomiting blood, bloating, blood in stool or black tarry stool : Denies: blood in urine or vaginal bleeding Musc: Denies: neck pain, extremity pain, extremity swelling, redness, muscle cramps, muscle weakness or other (Neck Pain or Swollen Glands) Skin/Breast: Denies: rash, itching, redness, new lesion, changes in skin color, yellow skin, nail changes or breast mass/lump Neuro: Denies: headache, changes in sensation, lack of coordination, frequent falls, dizziness, vertigo, seizure-like activity or other (TIA, Numbness) Psych: Reports: other (Delusions, Disorientation, or Insomnia); Denies: visual hallucinations, auditory hallucinations or tactile hallucinations Endo: Denies: excessive urination, excessive thirst or other (Abnormal Hair Loss) Chidi/Lymph: Denies: easy bruising All/Imm: Denies: hives Meds/Allergies Home Medications and Allergies Home Medications Medication Instructions Recorded Confirmed Type HRT Cream Base Women 4 mg TOPICAL DAILY 03/31/19 03/31/19 History aspirin 81 mg PO DAILY 03/31/19 03/31/19 History levothyroxine 50 mcg PO DAILY 03/31/19 03/31/19 History metoprolol tartrate 25 mg PO BID 03/31/19 03/31/19 History venlafaxine [Effexor XR] 150 mg PO BID 03/31/19 03/31/19 History Allergies Allergy/AdvReac Type Severity Reaction Status Date / Time codeine Allergy ADR-Headach Verified 03/31/19 23:13 e Current Medications Current Medications Generic Name Dose Route Start Last Admin Trade Name Freq PRN Reason Stop Dose Admin Acetaminophen 650 mg 04/01/19 01:24 04/02/19 13:54 Tylenol PO 650 mg Q6H PRN Administration Mild/Mod Pain Or Temp >/= 101 Aspirin 325 mg 04/01/19 11:00 04/02/19 10:44 Aspirin Ec PO 325 mg DAILY CEASAR Administration Atorvastatin Calcium 40 mg 04/01/19 11:00 04/02/19 10:47 Lipitor PO Not Given DAILY CEASAR Sodium Chloride 1,000 mls @ 100 mls/hr 04/01/19 01:24 04/02/19 17:18 Sodium Chloride 0.9% IV 100 mls/hr .Q10H CEASAR Administration Levothyroxine Sodium 50 mcg 04/02/19 09:00 04/02/19 10:44 Synthroid PO 50 mcg DAILY CEASAR Administration Metoprolol Tartrate 25 mg 04/01/19 18:00 04/02/19 17:14 Lopressor PO 25 mg BID CEASAR Administration Nitroglycerin 0.4 mg 04/01/19 04:09 04/01/19 11:26 Nitrostat SUBLINGUAL 1 dose Q5M PRN Administration CHEST PAIN Non-Formulary 4 mg 04/02/19 09:00 04/02/19 10:48 Medication (Hrt TOPICAL Not Given Cream Base Women 4 DAILY CEASAR Gm) Pantoprazole Sodium 40 mg 04/01/19 09:00 04/02/19 10:45 Protonix PO 40 mg DAILY CEASAR Administration Venlafaxine HCl 150 mg 04/01/19 18:00 04/02/19 17:14 Effexor Xr PO 150 mg BID CEASAR Administration PFSH Acute PFSH: Statuses (acute, chronic, etc) shown below reflect problem list status as previously entered and may not be historically accurate Medical History CKD (chronic kidney disease) stage 2, GFR 60-89 ml/min (Acute) Depression (Acute) Hyperlipidemia (Acute) Hypertension (Acute) Hypothyroidism (Acute) Labyrinthitis (Acute) TIA (transient ischemic attack) (Acute) Surgical History H/O section (Acute) Previous back surgery (Acute) Family History Mother , soon after the open heart surgery CAD (coronary artery disease) Father Abdominal aortic aneurysm Social History Smoking and tobacco status: former smoker Quit status (tobacco): has quit using tobacco Year quit tobacco: 2012 Alcohol intake: never Substance/Drug Use: never Lives independently: Yes Household members: spouse Housing: House Vitals/I&O/Wt Last Vital Signs Temp 97.6 F 04/02/19 16:00 Pulse 74 04/02/19 16:00 Resp 18 04/02/19 16:00 BP 112/72 04/02/19 16:00 Pulse Ox 99 04/02/19 16:00 04/02/19 04/02/19 04/02/19 06:59 14:59 22:59 Intake Total 696.666 / 3730.999 611.667 / 611.667 765 / 1376.667 Output Total 300 / 1700 1000 / 1000 Balance 396.666 / 2030.999 -388.333 / -388.333 765 / 376.667 Weight last 48 hrs Weight 164 lb Physical Exam Narrative: EXAM NARRATIVE: GENERAL: The patient is alert and oriented times three. Not in any acute distress. HEENT: No significant pallor, icterus or lymphadenopathy. The pupils are reactant to light. Oral cavity: There are no mucous membrane lesions. Funduscopic examination: The disk margins appear to be sharp with no exudates or hemorrhages. NECK: Trachea appears to be central. No masses noted. No JVD or thyromegaly appreciated. No carotid bruit. RESPIRATORY: Chest is symmetrical. No intercostals muscle retraction or any accessory muscle activation. There is no chest wall tenderness. Breath sounds are heard bilaterally. No rales or rhonchi heard. No evidence of any consolidation. BREASTS: Deferred. HEART: The PMI is in the 5th left intercostals space just inside the midclavicular line. No palpable precordial events. S1 and S2 are normal. No S3 or S4 heard. No pericardial rub or any click heard. ABDOMEN: No vessel pulsations or distention. No tenderness. No organomegaly appreciated. No abdominal bruit. Bowel sounds are normally heard. : Deferred. RECTAL: Deferred. LYMPHATIC: No lymphadenopathy noted in the neck or groin. EXTREMITIES: No edema or cyanosis. No clubbing. The pulses are symmetrical bilaterally. The radial, femoral, dorsalis pedis and the posterior tibial pulses are palpated and found to be in good volume and amplitude. MUSCULOSKELETAL: Gait is normal. There is no joint deformity or swelling noted. No joint tenderness or any effusion. The shoulder and hip joints appear to have normal range of motion. SKIN: There are no significant scars or skin rash noted. NEUROPSYCHIATRIC: The patient is alert and oriented x3. Somewhat anxious . the higher functions are grossly within normal limits. No tremors or rigidity noted. Data Imaging^: MPI: My impression: 1. Myocardial perfusion by revealing small to moderate area of decreased tracer uptake in the basal and mid inferolateral region, with some reversibility, suggestive of ischemia in the distribution of the left circumflex artery. 2. Normal LV ejection fraction 79%. 3. LV wall motion analysis revealing no gross wall motion normalities. 4. Normal LV volume. No similar previous studies are available for comparison CXR: My impression: Normal cardiac silhouette. No lung infiltrate. Hyperinflated lung christensen. EKG^: EKG 1: My Interpretation: The EKG revealed sinus rhythm with nonspecific T wave changes in the anterolateral leads. Nonspecific ST changes in the inferior leads. A&P Assessment and plan (1) Chest pain: Patient's chest pain in view of her risk factors, abnormal EKG and myocardial perfusion imaging is highly suggestive of underlying coronary ischemia. Her symptoms are consistent with an unstable anginal pattern. Currently she seems to be stable hemodynamically. For further management of her condition, I may start her on weight-based heparin. She may be kept on the metoprolol and aspirin. Other medication may be continued. Patient requires a cardiac catheterization, for further evaluation of her coronary status. The implications of the myocardial perfusion imaging findings are discussed in detail with the patient. She understood this well and consented to proceed. The risk of bleeding, hematoma, vascular injury, myocardial infarction, CVA, renal failure and other concomitant complications were explained in detail. Status: Acute Qualifiers: Chest pain type: precordial pain Qualified Code(s): R07.2 - Precordial pain Code(s): R07.9 - Chest pain, unspecified (2) Hypertension: Patient is currently normotensive. May continue on the current medications. Status: Acute Qualifiers: Hypertension type: essential hypertension Qualified Code(s): I10 - Essential (primary) hypertension Code(s): I10 - Essential (primary) hypertension (3) TIA (transient ischemic attack): Patient has a history of TIA. She has not had a recurrence. She may not require any specific intervention at this point. Status: Acute Code(s): G45.9 - Transient cerebral ischemic attack, unspecified (4) Dyslipidemia: Patient has been reluctant to take the statin drugs in the past. This was mainly because of the potential side effects. It would be appropriate to start the statin drug and watch her clinical response. Status: Acute Code(s): E78.5 - Hyperlipidemia, unspecified (5) History of hypothyroidism: Clinically she is euthyroid. May be continue on the current medications. Status: Acute Code(s): Z86.39 - Personal history of other endocrine, nutritional and metabolic disease Additional A&P Information Based on the clinical progress and the results of the above, further recommendations will be made. Thank you for the opportunity to evaluate this patient and make these recommendations. Consult Attestations Medical Necessity Statement: Patient requires continued hospital stay for close monitoring and further management Coding Level of Care Code Acute Shipping And Receiving Weigher for [facility] Fwd Diagnoses Chest pain R07.2 Chest pain type: precordial pain Hypertension I10 Hypertension type: essential hypertension TIA (transient ischemic attack) G45.9 Dyslipidemia E78.5 History of hypothyroidism Z86.39
--- NOTE | 2019-04-02 18:57 | USCV_ITS ---
Altaf Ramosline Age: 69 Gender: F : 1950 Exam Date: 04/02/2019 19:06 Ordering Phys: Jose Hinton MD ([email or web address]) Technologist: Kathleen Emmanuel Exam Location: [facility] [place] Indication: CHEST PAIN BP: / HR: 80 Rhythm: Sinus Technical Quality: Adequate MEASUREMENTS (Male / Female) Normal Values 2D ECHO LV Diastolic Diameter PLAX 3.1 cm 4.2 - 5.9 / 3.9 - 5.3 cm LV Systolic Diameter PLAX 1.5 cm LV Chamber Size 2.5 cm IVS Diastolic Thickness 1.6 cm 0.6 - 1.0 / 0.6 - 0.9 cm IVS Systolic Thickness 1.5 cm LVPW Diastolic Thickness 2.0 cm 0.6 - 1.0 / 0.6 - 0.9 cm LVPW Systolic Thickness 2.3 cm RV Chamber Size 2.8 cm LVOT Diameter 2.1 cm LV Ejection Fraction 2D Teich 83.5 % LV Ejection Fraction MOD 2C 21.4 % LV Ejection Fraction 2C AL 20.9 % LA Diameter 4.2 cm LA Width 3.3 cm LA Height 2.6 cm RA Width 3.3 cm RA Height 2.1 cm M-MODE LV Diastolic Diameter MM 4.1 cm 4.2 - 5.9 / 3.9 - 5.3 cm LV Systolic Diameter MM 2.5 cm LV Ejection Fraction MM Teich 70.8 % IVS Diastolic Thickness MM 1.0 cm 0.6 - 1.0 / 0.6 - 0.9 cm IVS Systolic Thickness MM 1.4 cm LVPW Diastolic Thickness MM 1.2 cm 0.6 - 1.0 / 0.6 - 0.9 cm LVPW Systolic Thickness MM 1.4 cm Aortic Annulus Diameter 2.8 cm LA Ao Ratio MM 1.5 MV E Point Septal Separation 0.4 cm DOPPLER AV Peak Velocity 108.0 cm/s LVOT Peak Velocity 96.0 cm/s AV Area Cont Eq vti 3.3 cm squared AV Area Cont Eq pk 3.0 cm squared MV Area PHT 5.5 cm squared Mitral E to A Ratio 0.8 MV E' Velocity 13.0 cm/s Mitral E to MV E' Ratio 6.6 Mitral E to LV E' Lateral Ratio 6.3 Mitral E to LV E' Septal Ratio 7.0 TR Peak Velocity 259.0 cm/s TR Peak Gradient 26.8 mmHg TV Peak E Velocity 49.0 cm/s Right Atrial Pressure 3.0 mmHg Pulmonary Artery Systolic Pressu 29.8 mmHg PV Peak Velocity 71.0 cm/s RV Acceleration Time 0.2 s RV Ejection Time 0.3 s RV AcT/ET 0.5 FINDINGS Left Ventricle normalities. Mild concentric left ventricular hypertrophy. Right Ventricle Possibly normal RV size and ejection fraction Right Atrium Possibly of normal size Left Atrium Possibly of normal size Mitral Valve Thickened mitral valve. Aortic Valve Thickened aortic valve. Tricuspid Valve No gross abnormalities noted Pulmonic Valve Pulmonic valve not well visualized. Pericardium No pericardial effusion. Aorta Normal aortic annulus size. CONCLUSIONS Normal LV size and ejection fraction of 55%. No gross wall motion normalities. Possible left ventricular diastolic dysfunction Mild concentric left ventricular hypertrophy thickened mitral valve. Thickened aortic valve. There is no pericardial effusion. There are no intracardiac masses. Technically difficult study because of the poor ultrasonic window. Dr Jose Hinton MD [facility] (Electronically Signed) Final Date: 02 April 2019 21:34 S
--- NOTE | 2019-04-02 19:31 | PC.CHAP ---
Pastoral Care Encounter/Spiritual Assessment Type of Contact [] Declined stone operator visit [] Patient/Family/Request visit [] Outpatient visit [x] Follow-up visit [] Physician referral [] Code/Alert [] Routine visit [] Staff referral [] Actively dying [] Patient sleeping [] Family support [] [] Out of room [] Palliative care [] [x] Receiving care in room [] Pre-surgical visit [] Trauma [] Long length of stay [] ICU visit [] Other: Relational/Emotional Strength [] Patient feels connected with others/family/visitors/staff [] Distress [] Loneliness/isolation [] Abandonment Spirituality of Patient [] Person of Linnette [] Attends Jew of their [place] [] Believes in Prayer [] Reads Bible or Yazdanism materials [] There are Spiritual issues to be addressed Speech And Hearing Clinic Director Interventions [] Prayer [] Active listening [] Non-anxious presence [] Spiritual/emotional support [] Crisis/trauma care [] Spiritual counseling [] Bereavement support [] Provided bereavement packet [] Provided Bible/devotional materials [] Provided toy/stuffed animal, coloring book to patient or family member [] Completed spiritual assessment [] Provided Communion [] Anointing/[place] [] Salvation [] Other: Impact on Illness or Injury [] Angry [] Fearful [] Anxious [] Often cries [] Exhaustion [] Unable to work [] Unable to attend shinto [] Unable to walk/stand [] Unable to read [] Unable to drive [] Unable to eat/drink [] Unable to sleep [] Unable to be with family [] Other: Summary Staff was in the room with the patient at the time of visit. Visit attempted by Speech And Hearing Clinic Director Bryan Alegre Time spent with patient 3 minutes
--- NOTE | 2019-04-02 19:56 | P.PN_ITS ---
Subjective Subjective: Interval history: Stress test performed today. Sometime after stress test had an episode of chest pain, although declined nitroglycerin. EKG obtained. Vitals/I&O/Wt Last Vital Signs Temp 97.6 F 04/02/19 16:00 Pulse 74 04/02/19 16:00 Resp 18 04/02/19 16:00 BP 112/72 04/02/19 16:00 Pulse Ox 99 04/02/19 16:00 04/02/19 04/02/19 04/02/19 06:59 14:59 22:59 Intake Total 696.666 / 3730.999 611.667 / 611.667 765 / 1376.667 Output Total 300 / 1700 1000 / 1000 Balance 396.666 / 2030.999 -388.333 / -388.333 765 / 376.667 Weight last 48 hrs Weight 74.389 kg Physical Exam Const: COMMON NORMALS: no apparent distress and oriented x3 HENMT: COMMON NORMALS: oropharynx normal Neck/C-Spine: COMMON NORMALS: no JVD Resp: COMMON NORMALS: normal respiratory effort and clear to auscultation bilaterally AUSCULTATION: clear to auscultation bilaterally Cardio: COMMON NORMALS: no JVD, regular rhythm, S1 normal heart sound, S2 normal heart sound and no murmurs RHYTHM: regular rhythm HEART SOUNDS: S1 normal and S2 normal GI: COMMON NORMALS: normal to inspection, nondistended, normoactive bowel sounds, soft to palpation and non-tender PALPATION: Yes soft Extremity: COMMON NORMALS: no joint enlargement and no pedal edema Neuro: COMMON NORMALS: oriented x3 and moves all extremities Skin: COMMON NORMALS: no rashes or lesions noted GENERAL SKIN EXAM: no rashes or lesions noted Data : 04/02/19 05:03 04/02/19 05:03 A&P Assessment and plan (1) Chest pain: Had a stress test today, with subsequently with an episode of chest pain sometime afterward. Minimal ST depression on EKG. With concern for unstable angina with abnormal stress test results suggestive of possible ischemia in distribution of circumflex artery. Assessed by cardiology. Appreciate recommendations. Started on anticoagulation. Continue aspirin, beta-rosa. Statin discussed with her today earlier due to hypercholesterolemia. She was reluctant initially due to side effects she had read about in the past, however, agreeable to initiate tr ial. N.p.o. after midnight for invasive risk stratification tomorrow. Status: Acute Qualifiers: Chest pain type: precordial pain Qualified Code(s): R07.2 - Precordial pain Code(s): R07.9 - Chest pain, unspecified (2) Hypertension: At goal. Status: Acute Qualifiers: Hypertension type: essential hypertension Qualified Code(s): I10 - Essential (primary) hypertension Code(s): I10 - Essential (primary) hypertension Additional A&P Information -CKD stage 2-3; baseline Cr wnl -Hyperlipidemia -hx of TIA -Hypothyroidism Depression: At home takes venlafaxine 150 mg, however, she doubles it up to 300 mg once a day. Discussed with her that this is over maximum recommended daily limit. She states that she is aware, and that she has been doing this for a while under the supervision of her primary care provider with good success. Attestations Medical Necessity Statement*: Continue admission for assessment management of coronary disease with suspected unstable angina. Coding Level of Care Code Acute Digital Project Manager for Joleen Vilchis Diagnoses Chest pain R07.2 Chest pain type: precordial pain Hypertension I10 Hypertension type: essential hypertension
[2019-04-02] MEDS: heparin drip 25,000 UNIT/500 ML PREMIX 21 UNIT IV (20:00)
[2019-04-02 20:13] LABS: Basophils % 0.5 %; Eosinophils # 0.3 10^3/uL (0.0-0.8); Eosinophils % 3.8 %; Hematocrit 36.7 % (37.0-47.0); Lymphocytes % 25.3 %; Mean Corpuscular HGB Conc 32.7 g/dL (30.0-36.0); Mean Corpuscular Hemoglobin 31.2 pg (28.0-34.0); Mean Corpuscular Volume 95.3 fL (81-99); Mean Platelet Volume 9.8 fL (7.4-10.4); Monocytes # 0.6 10^3/uL (0.2-0.9); Monocytes % 7.9 %; Neutrophils # 4.9 10^3/uL (1.8-7.7); Nucleated Red Blood Cells % 0 %; Platelet Count 345 10^3/cmm (130-400); Red Blood Count 3.85 10^6/uL (4.1-5.3); Red Cell Distribution Width 13.3 % (12.1-15.1); White Blood Count 7.9 10^3/uL (4.0-10.0)
[2019-04-02] MEDS: nitroglycerin 1 gm/inch oint Pkt 1 INCH TOPICAL (20:13)
[2019-04-02 20:29] LABS: Anion Gap 15.7 (5-19); Blood Urea Nitrogen 11 mg/dL (8-23); Calcium 9.8 mg/Dl (8.8-10.2); Carbon Dioxide 21 mmol/L (22-29); Chloride 106 mmol/L (98-107); Glucose 118 mg/dL (74-106); Potassium 3.7 mmol/L (3.5-5.1); Sodium 139 mmol/L (136-145)
[2019-04-03] VITALS (39 sets, daily range): BP systolic 97–170; BP diastolic 61–91; PULSE 67–109; RESP 12–22; TEMP 36.6–36.9; O2SAT 93–100
[2019-04-03 01:54] LABS: Basophils % 0.4 %; Eosinophils # 0.3 10^3/uL (0.0-0.8); Eosinophils % 4.5 %; Hematocrit 35.4 % (37.0-47.0); Hemoglobin 11.8 g/dL (11.5-15.3); Lymphocytes # 2.5 10^3/uL (0.8-4.8); Mean Corpuscular HGB Conc 33.3 g/dL (30.0-36.0); Mean Corpuscular Hemoglobin 30.8 pg (28.0-34.0); Mean Corpuscular Volume 92.4 fL (81-99); Mean Platelet Volume 9.8 fL (7.4-10.4); Monocytes # 0.6 10^3/uL (0.2-0.9); Monocytes % 7.6 %; Neutrophils # 4.2 10^3/uL (1.8-7.7); Neutrophils % 54.2 %; Nucleated Red Blood Cells % 0 %; Platelet Count 326 10^3/cmm (130-400); Red Blood Count 3.83 10^6/uL (4.1-5.3); Red Cell Distribution Width 13.1 % (12.1-15.1); White Blood Count 7.6 10^3/uL (4.0-10.0)
[2019-04-03 02:03] LABS: Partial Thromboplastin Time 63.8 SECONDS (23.9-36.7)
[2019-04-03 02:09] LABS: Anion Gap 14.6 (5-19); Blood Urea Nitrogen 14 mg/dL (8-23); Calcium 9.5 mg/Dl (8.8-10.2); Carbon Dioxide 24 mmol/L (22-29); Chloride 105 mmol/L (98-107); Glucose 98 mg/dL (74-106); Potassium 3.6 mmol/L (3.5-5.1); Sodium 140 mmol/L (136-145)
[2019-04-03] MEDS: nitroglycerin 1 gm/inch oint Pkt 1 INCH TOPICAL (03:05)
[2019-04-03] MEDS: sodium chloride 0.9% 1,000 ML 100 ML IV (04:17)
--- NOTE | 2019-04-03 07:07 | XACV_ITS ---
Exam Room: [facility] Ht: 157 cm Wt: 74 kg BSA: 1.83 m2 Gender: Female : 1950 Any Known Allergies: Codeine Exam Priority: Routine Procedure(s): Procedure Description: Diagnostic procedure Procedure Description: PCI procedure Procedure Description: Left Heart Catheterization Procedure Description: Left ventriculography Procedure Description: Drug Eluting Coronary Stent Procedure Description: PTCA Procedure Description: Miscellaneous Procedure Description: ACT Procedure Description: Coronary Angiography Diagnostic Cath Status: Urgent Diagnostic Findings The left main is a medium caliber vessel with no significant stenotic lesions. The left anterior descending artery is a medium caliber vessel which appears to taper off to his LV apex. The proximal LAD was found to have around 50 to 60% segmental narrowing just before the first diagonal branch. The first diagonal branch was found to have diffuse irregular narrowing of around 50 to 60% proximally. The mid and distal LAD was found to have mild diffuse disease. Mild to moderate coronary calcification was noted proximally. The left circumflex artery is a medium caliber vessel with no significant stenotic lesion. The right coronary artery is a medium to large caliber vessel which was found to have a subtotal occlusion proximally. The distal right coronary artery was found to have at least moderate disease, involving the ostium of the PDA branch. Coronary angiography shows right dominance. PCI Status: Elective PCI Indication: New Onset Angina <= 2 months Interventional Findings Mid Right Coronary Artery: 99% stenosis treated with AB TREK 2.50X15 RX BALLOON, MDT R MORALES 3.5X26 DARYN, and MDT NC EUPHORA RX [id number] BALLOON. 0% residual stenosis, CHRISTIAN: 3 flow. RPDA: 95% stenosis treated with AB MINI TREK 2.00X8 RX BALLOON and MDT R MORALES 2.25X12 DARYN. 0% residual stenosis, CHRISTIAN: 3 flow. Conclusions This is a 69-year-old white female, presents with a recurrent episodes of prolonged chest pains following meals. She had a myocardial perfusion imaging which revealed decreased tracer uptake in the basal and mid inferolateral region, with some reversibility, suggestive of ischemia in the distribution of the left circumflex artery. In view of her ongoing recurrent episodes of the symptoms, for further evaluation of her coronary status, a cardiac catheterization was recommended. Her EKG showed nonspecific ST-T changes in the anterolateral and inferior leads. Patient underwent left heart catheterization with a left and right coronary angiogram today. The coronary angiogram revealed subtotal occlusion of the proximal right coronary artery with at least moderate disease in the distal right coronary artery involving the ostium of the PDA branch. The proximal LAD and the first diagonal branch were found to have moderate disease. Mild diffuse disease was noted in the other vessels. LVEDP was around 20 mmHg. Mid Right Coronary Artery was treated with two Balloon and Drug Eluting Stent. RPDA was treated with Balloon and Drug Eluting Stent. Recommendations I discussed and reviewed the cardiac catheterization data with Dr. Bhatia It was thought to be appropriate to consider PCI of the RCA lesion. Dr. Bhatia took over further management of this patient at this point. 1-Return to inpatient for close monitoring and routine cath care2-Risk factor modification for secondary prevention3-Statin and aspirin 81 mg life-long, if tolerated4-Patient was pre-loaded with 600 mg of Plavix, continue Plavix 75mg p.o. daily for at least one year. We will assess at the end of one year again to continue if further or not5-Continue optimal medical management6-Follow up with Dr. Hinton in four weeks and your primary care in 10 days. Interventional RX Recommendation: PCI w/o planned CABG Diagnostic RX Recommendation: PCI w/o planned CABG LV EDP: 20 mmHg Left Ventriculography Findings: There were technical problems with the pressure transducer. We could not get an automatic LVEDP. It appeared to be around 20 mmHg. Patient had a frequent PVCs with the LV catheter. For that reason, we decided not to do the LV angiogram. Pressures Phase:Rest AO : 82 mmHg / -12 mmHg ( 14 mmHg ) @ 2:00:00 AM 84 mmHg / 16 mmHg ( 43 mmHg ) @ 2:02:00 AM 80 mmHg / 32 mmHg ( 51 mmHg ) @ 2:02:00 AM 62 mmHg / 27 mmHg ( 43 mmHg ) @ 2:04:00 AM 62 mmHg / 17 mmHg ( 39 mmHg ) @ 2:09:00 AM 70 mmHg / 27 mmHg ( 47 mmHg ) @ 2:11:00 AM 68 mmHg / 23 mmHg ( 44 mmHg ) @ 2:12:00 AM 75 mmHg / 35 mmHg ( 54 mmHg ) @ 2:16:00 AM 70 mmHg / 31 mmHg ( 50 mmHg ) @ 2:17:00 AM 80 mmHg / 27 mmHg ( 49 mmHg ) @ 2:21:00 AM 78 mmHg / 28 mmHg ( 52 mmHg ) @ 2:42:00 AM 93 mmHg / 38 mmHg ( 62 mmHg ) @ 2:45:00 AM 99 mmHg / 46 mmHg ( 70 mmHg ) @ 2:50:00 AM 76 mmHg / 12 mmHg ( 16 mmHg ) @ 2:54:00 AM 122 mmHg / 59 mmHg ( 87 mmHg ) @ 2:58:00 AM 134 mmHg / 54 mmHg ( 89 mmHg ) @ 3:00:00 AM 125 mmHg / 51 mmHg ( 84 mmHg ) @ 3:06:00 AM 106 mmHg / 35 mmHg ( 67 mmHg ) @ 3:07:00 AM 99 mmHg / 38 mmHg ( 65 mmHg ) @ 3:08:00 AM 85 mmHg / 27 mmHg ( 52 mmHg ) @ 3:08:00 AM 102 mmHg / 46 mmHg ( 73 mmHg ) @ 3:21:00 AM 72 mmHg / -6 mmHg ( 34 mmHg ) @ 3:22:00 AM 104 mmHg / 37 mmHg ( 67 mmHg ) @ 3:35:00 AM 77 mmHg / 27 mmHg ( 41 mmHg ) @ 3:40:00 AM LV : 94 mmHg / -31 mmHg / @ 2:01:00 AM 84 mmHg / -27 mmHg / @ 2:21:00 AM 80 mmHg / -28 mmHg / @ 2:21:00 AM Valves Phase:DefaultPhase AV : 10.0 mmHg @ 10:18:17 AM 10.0 mmHg @ 10:18:18 AM AV Mean Gradient: 7.0 mmHg @ 10:18:17 AM 7.0 mmHg @ 10:18:18 AM Clinical Evaluation EBL: 5mL-10mL Procedural Details [facility] time/date stamp having technical issues. All documentation and procedure done on 04/03/2019. Start time [address] Bhatia called. Dr. Bhatia arrived. AP pads applied to t. OR (Rosa M) notified of intervention. cougar wire removed. Inflation Number : 3 A MDT R MORALES 3.5X26 DARYN -Lot Number# [id number] was prepped and advanced across the Mid RCA. The stent was deployed at 16 LASHAUN for 0:22 seconds. Inflation Number : 5 A MDT R MORALES 2.25X12 DARYN -Lot Number#[id number] exp 07-13-2020 was prepped and advanced across the Dist RCA. The stent was deployed at 14 LASHAUN for 0:13 seconds. Medication's Wasted: Heparin = 3000 units. [id number]. Inaccurate date of note: 2019 Patient taken to CPRU at 1000. Report off to Jevon Arango RN ADVERTISING MANAGER. Noted that patient needs Plavix 600 mg by mouth now. Patient is awake enough to take the medication. Patient is in Transfer status and awaiting oders from Dr Bhatia. Medication pulled from Airplane Technician and given as ordered verbally. Pulled and administer by Dorian Posada RN ADVERTISING MANAGER. Witnessed by Andre Arango RN ADVERTISING MANAGER. Procedure Consent Obtained. Current Diagnosis : Chest Pain. Pre-Procedure Time Out. Identified patient by full name and date of as verbalized by the patient/guarantor. Does the consent match the physician's order: Yes. Accurate & Complete Informed Consent: Yes. Inpatient/Outpatient History & Physical on Chart: Yes. If H&P is completed, is and addenduem needed: N/A; If yes, is the addendum complete: N/A. Visualize and Verify Site with Patient/Guarantor: N/A. Relevant Radiology Images available: Yes. Pre-op teaching completed and patient verbalized understanding. The risks, benefits, and alternatives of sedation and/or procedure were discussed by physician. The patient agrees to continue. Procedure started. Correct patient, site and procedure confirmed by cath team. Current diagnosis: Chest Pain. PERRLA. Strong, equal hand egg and spice mixer bilaterally. Lungs clear x 5 lobes. IV Fluids: 0.9% NaCl at KVO. 0 mL infused prior to specialist employee labor relations. Oxygen started at 2liters/min via nasal canula. right groin was prepped with chloroprep then draped in the usual sterile fashion. right radial was prepped with chloroprep then draped in the usual sterile fashion. Physician notified. IV Site on Arrival: 18 gauge in the right anticubital. Baseline sample Acquired. HR: 82 BPM. Equipment: 6F - Radial. Cardiac Cath Pack. ACIST Manifold Kit Model BT 2000. Heparinized Saline (2 units/mL), 1000 mL bag. Physician arrived. Physician scrubbed in. Immediate Pre-Procedure Time Out. Correct Patient: Yes; Correct Procedure: Yes; Correct Site: Yes; Correct Patient Position: Yes; Correct Supplies: Yes; Dried Flammable Prep: Yes; Blood Products Available: No;. Lidocaine 1% infiltrated to the right radial. Arterial access obtained. A 5 cypriot Matti catheter in over wire. EDP Sample taken: LV 94/-32,-11; HR: 76 BPM; SpO2: 90%. Pullback taken: LV Off; AO 80/32(51); Mean: 7mmHg, Peak to Peak: 10mmHg, SEP: 52sec/min; HR: 75 BPM; SpO2: 90%. ACT drawn. Results 102 seconds. Therapeutic limits - pre-heparin administration 90-150 seconds and monitoring heparin during a vascular procedure >250 seconds. Patient's family updated. Multiple views taken of left coronary artery. Catheter redirected to the RCA. Catheter out. A 5 cypriot JR4 catheter in over wire. Multiple views taken of right coronary artery. A 5 cypriot Angled Pig catheter in over wire. EDP Sample taken: LV 80/-29,-13; HR: 84 BPM; SpO2: 88%. Side port of sheath attached to Normal Saline flush at KVO to maintain patency. Inventory is Queue Software [employer] [place] XT .[address] Guidewire. Dr. Bhatia scrubbed in to perform intervention. [facility] Clinical Fraility Score: 4: Vulnerable. Chest Pain Symptom Assessment: Typical Angina Symptoms. Airplane Technician Indications: Other. Cardiovascular Instability: No. 6 cypriot JR 4 SH guide catheter was inserted over the wire. [place] guidewire was advanced through the guide catheter to lesion in the mid RCA. Runthrough guidewire was advanced through the guide catheter to lesion in the mid RCA. Inventory is TR 180cm Runthrough NS extra floppy 0.014 wire. Inflation number : 1 A AB TREK 2.50X15 RX BALLOON was prepped and advanced across the Mid RCA , then inflated to 14 LASHAUN for 0:17 seconds. Inflation number: 2 The AB TREK 2.50X15 RX BALLOON was reinflated across the Mid RCA, to 16 LASHAUN for 0:10 seconds. Results checked. Balloon out. Stent balloon out over wire. Inflation number : 4 A MDT NC EUPHORA RX [id number] BALLOON was prepped and advanced across the Mid RCA , then inflated to 12 LASHAUN for 0:10 seconds. Inflation number: 5 The MDT NC EUPHORA RX 3.43K90PS BALLOON was reinflated across the Mid RCA, to 14 LASHAUN for 0:09 seconds. Inflation number: 6 The MDT NC EUPHORA RX 3.42K67MF BALLOON was reinflated across the Mid RCA, to 12 LASHAUN for 0:08 seconds. ACT drawn. Results 316 seconds. Therapeutic limits - pre-heparin administration 90-150 seconds and monitoring heparin during a vascular procedure >250 seconds. [place] guidewire was advanced through the guide catheter to lesion in the PLV. Inflation number : 1 A AB MINI TREK 2.00X8 RX BALLOON was prepped and advanced across the Dist RCA , then inflated to 12 LASHAUN for 0:12 seconds. Inflation number: 2 The AB MINI TREK 2.00X8 RX BALLOON was reinflated across the Dist RCA, to 12 LASHAUN for 0:10 seconds. Inflation number: 3 The AB MINI TREK 2.00X8 RX BALLOON was reinflated across the Dist RCA, to 14 LASHAUN for 0:11 seconds. Inflation number: 4 The AB MINI TREK 2.00X8 RX BALLOON was reinflated across the Dist RCA, to 16 LASHAUN for 0:10 seconds. Wire out. Guide catheter out. A TR Band was successful obtaining hemostatsis at the Right Radial artery insertion site. TR band placed. Hemostasis obtained. Post Procedure: Pulses reassessed and unchanged. PERRLA. Strong, equal hand egg and spice mixer bilaterally. No VTE prophylaxis required. Fluoro: 26:08. Contrast type used: Omnipaque 300 mgI/mL, 500 mL bottle. PCI Indication: New Onset Angina. Post-op diagnosis: abnormal stress test/ PCI mid RCA/PLV. Complications: none. Estimated blood loss: 5mL-10mL. Medication's Wasted: Nitro = 49.6 mg. Medication's Wasted: Lidocaine 1% = 18 mL. Medication's Wasted: Other = versed 1 mg. Medication's Wasted: Other = fentanyl 75 mcg. Medication's Wasted: Other = cardene 24.8 mg. Total IV fluids: 350 mL. Procedure completed. Patient transferred by bed to 1st floor. Vital chart was stopped. Site: Right Radial artery Sheath Size: 6 Fr Hemostasis Method: TR Band Hemostasis Success: Successful Procedure Medications Start: 7:54 AM Stop: 7:54 AM Medication: Versed Amount: 1 mg Route: I.V. Start: 7:54 AM Stop: 7:54 AM Medication: Fentanyl Amount: 25 mcg Route: I.V. Start: 7:56 AM Stop: 7:56 AM Medication: Lopressor (metoprolol) Amount: 5 mg Route: I.V. Start: 7:56 AM Stop: 7:56 AM Medication: Versed Amount: 1 mg Route: I.V. Start: 7:57 AM Stop: 7:57 AM Medication: Verapamil Amount: 5 mg Route: I.A. Start: 7:58 AM Stop: 7:58 AM Medication: Nitrogylcerin Amount: 200 mcg Route: I.A. Start: 7:58 AM Stop: 7:58 AM Medication: Fentanyl Amount: 25 mcg Route: I.V. Start: 8:03 AM Stop: 8:03 AM Medication: 0.9% Saline Amount: 250 ml Route: I.V. bolus Start: 8:08 AM Stop: 8:08 AM Medication: Heparin Amount: 5000 units Route: I.V. Start: 8:19 AM Stop: 8:19 AM Medication: Versed Amount: 1 mg Route: I.V. Start: 8:19 AM Stop: 8:19 AM Medication: Fentanyl Amount: 25 mcg Route: I.V. Start: 8:39 AM Stop: 8:39 AM Medication: Heparin Amount: 3000 units Route: I.V. Start: 8:44 AM Stop: 8:44 AM Medication: Aggrastat 12.5 mg/250 mL Amount: 38 ml Route: I.V. bolus Start: 8:48 AM Stop: 8:48 AM Medication: Aggrastat 12.5 mg/250 mL Amount: 13.7 ml/hr Route: I.V. drip Start: 8:50 AM Stop: 8:50 AM Medication: Versed Amount: 1 mg Route: I.V. Start: 8:57 AM Stop: 8:57 AM Medication: Fentanyl Amount: 25 mcg Route: I.V. Start: 8:59 AM Stop: 8:59 AM Medication: Cardene Amount: 200 mcg Route: I.C. Start: 9:00 AM Stop: 9:00 AM Medication: Versed Amount: 1 mg Route: I.V. Start: 9:07 AM Stop: 9:07 AM Medication: Nitrogylcerin Amount: 200 mcg Route: I.C. Start: 9:18 AM Stop: 9:18 AM Medication: Versed Amount: 1 mg Route: I.V. Start: 9:27 AM Stop: 9:27 AM Medication: Versed Amount: 1 mg Route: I.V. Start: 9:27 AM Stop: 9:27 AM Medication: Fentanyl Amount: 25 mcg Route: I.V. Start: 9:35 AM Stop: 9:35 AM Medication: Nitrogylcerin Amount: 200 mcg Route: I.C. I, the attending physician, have reviewed and verified all procedure medications. Yes, all medications given per verbal order History/Risk Factors Hypertension: Yes Dyslipidemia: Yes Peripheral Arterial Disease (PAD): No Myocardial Infarction (AK): No Obesity: No Renal Disease: Yes Tobacco Use: Former Prior Interventions PCI: No CABG: No Valve Surgery: No Report Signatures Interventional Workflow - Finalized by: Mal Bhatia MD on 04/04/2019 11:37:07 AM Diagnostic Workflow - Finalized by:Dr Jose Hinton MD [facility] on 04/03/2019 5:43:16 PM
--- NOTE | 2019-04-03 09:35 | P.PN_ITS ---
Subjective Subjective: Interval history: Patient had some mild chest discomfort last night. Overall she did well. No new symptoms. Vital signs remained stable. Medications: Reviewed: Yes Medication Review Details: She is on IV heparin. This was stopped around 6:30 AM. Vitals/I&O/Wt Last Vital Signs Temp 98.3 F 04/03/19 08:35 Pulse 86 04/03/19 08:35 Resp 16 04/03/19 08:35 BP 166/82 04/03/19 08:35 Pulse Ox 98 04/03/19 08:35 04/02/19 04/03/19 04/03/19 22:59 06:59 14:59 Intake Total 765 / 5419.987 9190 / 2376.667 Balance 765 / 241.423 5737 / 1376.667 Physical Exam Narrative: EXAM NARRATIVE: GENERAL: The patient is alert and oriented times three. Not in any acute distress. HEENT: No significant pallor, icterus or lymphadenopathy. The pupils are reactant to light. Oral cavity: There are no mucous membrane lesions. NECK: Trachea appears to be central. No masses noted. No JVD or thyromegaly appreciated. No carotid bruit. RESPIRATORY: Chest is symmetrical. No intercostals muscle retraction or any accessory muscle activation. There is no chest wall tenderness. Breath sounds are heard bilaterally. No rales or rhonchi heard. No evidence of any consolidation. BREASTS: Deferred. HEART: No palpable precordial events. S1 and S2 are normal. No S3 or S4 heard. No pericardial rub or any click heard. ABDOMEN: No vessel pulsations or distention. No tenderness. No organomegaly appreciated. No abdominal bruit. Bowel sounds are normally heard. : Deferred. RECTAL: Deferred. LYMPHATIC: No lymphadenopathy noted in the neck or groin. EXTREMITIES: No edema or cyanosis. No clubbing. The pulses are symmetrical bilaterally. The radial, femoral, dorsalis pedis and the posterior tibial pulses are palpated and found to be in good volume and amplitude. MUSCULOSKELETAL: No acute joint deformities or swelling SKIN: There are no significant scars or skin rash noted. NEUROPSYCHIATRIC: The patient is alert and oriented x3. Somewhat anxious . the higher functions are grossly within normal limits. No tremors or rigidity noted. Data : 04/03/19 01:35 01/21/20 01:35 Micro: Microbiology 04/02/19 18:30 C.difficile Toxin B Gene (PCR) - Final Stool A&P Assessment and plan (1) Chest pain: Patient's chest pain in view of her risk factors, abnormal EKG and myocard ial perfusion imaging is highly suggestive of underlying coronary ischemia. Her symptoms are consistent with an unstable anginal pattern. Currently she seems to be stable hemodynamically. For further management of her condition, I may start her on weight-based heparin. She may be kept on the metoprolol and aspirin. Other medication may be continued. Patient requires a cardiac catheterization, for further evaluation of her coronary status. The implications of the myocardial perfusion imaging findings are discussed in detail with the patient. She understood this well and consented to proceed. The risk of bleeding, hematoma, vascular injury, myocardial infarction, CVA, renal failure and other concomitant complications were explained in detail. Patient is scheduled for cardiac catheterization this morning. Based on the results, further recommendations will be made Status: Acute Qualifiers: Chest pain type: precordial pain Qualified Code(s): R07.2 - Precordial pain Code(s): R07.9 - Chest pain, unspecified (2) Hypertension: Patient is currently normotensive. May continue on the current medications. Status: Acute Qualifiers: Hypertension type: essential hypertension Qualified Code(s): I10 - Essential (primary) hypertension Code(s): I10 - Essential (primary) hypertension (3) TIA (transient ischemic attack): Patient has a history of TIA. She has not had a recurrence. She may not require any specific intervention at this point. Status: Acute Code(s): G45.9 - Transient cerebral ischemic attack, unspecified (4) Dyslipidemia: Patient was started on Lipitor. Patient is tolerating medication so far well. May continue on the current medications. Status: Acute Code(s): E78.5 - Hyperlipidemia, unspecified (5) History of hypothyroidism: Clinically she is euthyroid. May be continue on the current medications. Status: Acute Code(s): Z86.39 - Personal history of other endocrine, nutritional and metabolic disease Additional A&P Information Based on the clinical progress and the results of the above, further recommendations will be made. Thank you for the opportunity to evaluate this patient and make these recommendations. Attestations Medical Necessity Statement*: Patient requires continued hospital stay for close monitoring and further management Coding Level of Care Code Acute Senior Php Software Developer for Chg Fwd Diagnoses Chest pain R07.2 Chest pain type: precordial pain Hypertension I10 Hypertension type: essential hypertension TIA (transient ischemic attack) G45.9 Dyslipidemia E78.5 History of hypothyroidism Z86.39
[2019-04-03] MEDS: acetaminophen 325 mg Tablet 650 MG PO ×2 (11:22→17:28)
[2019-04-03] MEDS: venlafaxine ER (24HR) 150 mg Capsule 300 MG PO (17:28)
[2019-04-03] MEDS: metoprolol tartrate 25 mg Tablet PO (17:29)
--- NOTE | 2019-04-03 20:53 | PM.PN ---
Subjective Subjective: Interval history: She is feeling better. Still reporting occasional twinge in the middle of her chest. Nothing currently, and nothing more than mild. Discussed with her to let somebody know in case it ever becomes worse. She is eagerly awaiting to return home. Vitals/I&O/Wt Last Vital Signs Temp 98.1 F 04/03/19 18:59 Pulse 84 04/03/19 19:59 Resp 16 04/03/19 18:59 BP 115/62 04/03/19 18:59 Pulse Ox 96 04/03/19 19:59 04/03/19 04/03/19 04/03/19 06:59 14:59 22:59 Intake Total 1000 / 2376.667 240 / 240 Balance 1000 / 1376.667 240 / 240 Physical Exam Const: COMMON NORMALS: no apparent distress and oriented x3 HENMT: COMMON NORMALS: oropharynx normal Neck/C-Spine: COMMON NORMALS: no JVD Resp: COMMON NORMALS: normal respiratory effort and clear to auscultation bilaterally AUSCULTATION: clear to auscultation bilaterally Cardio: COMMON NORMALS: no JVD, regular rhythm, S1 normal heart sound, S2 normal heart sound and no murmurs RHYTHM: regular rhythm HEART SOUNDS: S1 normal and S2 normal GI: COMMON NORMALS: normal to inspection, nondistended, normoactive bowel sounds, soft to palpation and non-tender PALPATION: Yes soft Extremity: COMMON NORMALS: no joint enlargement and no pedal edema Neuro: COMMON NORMALS: oriented x3 and moves all extremities Skin: COMMON NORMALS: no rashes or lesions noted GENERAL SKIN EXAM: no rashes or lesions noted Data : 04/03/19 01:35 04/03/19 01:35 Micro: Microbiology 04/02/19 18:30 C.difficile Toxin B Gene (PCR) - Final Stool A&P Assessment and plan (1) Chest pain: Status post coronary angiography and PCI for subtotal occlusion of RCA. Complete report pending. Continue cardiac medications. Optimize risk factors for coronary disease. Status: Acute Qualifiers: Chest pain type: precordial pain Qualified Code(s): R07.2 - Precordial pain Code(s): R07.9 - Chest pain, unspecified (2) Hypertension: At goal. Status: Acute Qualifiers: Hypertension type: essential hypertension Qualified Code(s): I10 - Essential (primary) hypertension Code(s): I10 - Essential (primary) hypertension Additional A&P Information -CKD stage 2-3; baseline Cr wnl -Hyperlipidemia -hx of TIA -Hypothyroidism Depression: At home takes venlafaxine 150 mg, however, she doubles it up to 300 mg once a day. Discussed with her that this is over maximum recommended daily limit. She states that she is aware, and that she has been doing this for a while under the supervision of her primary care provider with good success. Attestations Medical Necessity Statement*: Continue admission for post coronary angiography care. Coding Level of Care Code Acute Assistant Grocery Store Manager for Joleen Vilchis Diagnoses Chest pain R07.2 Chest pain type: precordial pain Hypertension I10 Hypertension type: essential hypertension
[2019-04-03] MEDS: atorvastatin 40 mg Tablet PO (21:03)
[2019-04-04] MEDS: acetaminophen 325 mg Tablet 650 MG PO (00:11)
[2019-04-04 04:00] VITALS: BP 120/84; PULSE 92; RESP 17; TEMP 36.7; O2SAT 96
[2019-04-04 07:34] VITALS: BP 155/93; PULSE 95; RESP 16; TEMP 36.4; O2SAT 97
--- NOTE | 2019-04-04 07:50 | PM.DCS ---
Discharge Providers Date of Admission: 04/02/19 19:55 Date of Discharge: 04/04/19 Attending Provider at Admission: Elena Adams MD Attending Provider at Discharge: Majo Quintanilla MD Primary Care Provider: Helen Jansen MD Diagnoses at Discharge Discharge Diagnosis (1) Chest pain: Status: Acute Qualifiers: Chest pain type: precordial pain Qualified Code(s): R07.2 - Precordial pain (2) Hypertension: Status: Acute Qualifiers: Hypertension type: essential hypertension Qualified Code(s): I10 - Essential (primary) hypertension Reason for Visit Reason for Visit: Reason For Visit: cp Hospital Course Discharge Summary: Gisele Ramos is a 69 year old female with a history of hypertension, dyslipidemia, is admitted to the hospital with a prolonged episode of chest pain. Myocardial infarction was ruled out. She underwent myocardial perfusion imaging which was abnormal. Subsequently patient underwent left heart catheterization yesterday. She was found to have subtotal occlusion of the right coronary artery at the proximal to mid segment. Moderately severe disease was noted at the distal artery involving the ostium of the PDA. Patient underwent a PCI of both these lesions by Dr. Bhatia. She had an uneventful postprocedure course. Currently she denies any chest pain or shortness of breath. She is being discharged today in stable condition. Reports h/o recurrent panic attacks- requesting anxiolytics for the same. Physical Exam Narrative: EXAM NARRATIVE: GEN: Awake, alert and oriented, no acute distress CVS: S1S2 normal RS: CTA B/L Abd: Soft, nt/nd , bs+ BAR AND FILLER ASSEMBLER: no focal neuro deficits Discharge Data Data Completed and Pending: Completed Studies During Hospitalization Category Date Time Status CT abdomen pelvis wo con [id number] Rout ine Cat Scan 04/01/19 01:24 Completed Sestamibi Stress Test Request Routi ne Exams 04/02/19 06:56 Completed XR chest 1V landy ble [id number] Stat Exams 03/31/19 23:16 Completed NM kaitlynn perf SPECT r/s* [id number] Routin e Nuc Med 04/02/19 18:14 Completed CV echo complete* [id number] Routine Ultrasound 04/02/19 18:57 Completed Pending at discharge Category Date Time Status RANGE EXAMINER request for service Routin e Exams 04/03/19 07:07 Stop Req Sestamibi Stress Test Request Routi ne Exams 04/01/19 18:14 Stop Req BMP [Basic [employer] lic Panel] AM LABS Lab 04/04/19 04:00 Ordered Vitals: Last Vital Signs Temp 97.6 F 04/04/19 07:34 Pulse 95 04/04/19 07:34 Resp 16 04/04/19 07:34 BP 155/93 04/04/19 07:34 Pulse Ox 97 04/04/19 07:34 Discharge Plan Discharge Patient Disposition: Home, Self-Care Condition: Stable Prescriptions: New atorvastatin 40 mg Tablet 40 mg PO BEDTIME 30 Days Qty: 30 RF: 0 clopidogrel 75 mg Tablet 75 mg PO DAILY 30 Days Qty: 30 RF: 0 Nitrostat 0.4 mg Tablet, Sublingual 0.4 mg sublingual Q5M PRN (Reason: Chest Pain) 30 Days Qty: 30 RF: 0 alprazolam 0.25 mg Tablet 0.25 mg PO BID PRN (Reason: Anxiety) Qty: 30 RF: 0 Continued Effexor XR 150 mg Capsule,Extended Release 24hr 150 mg PO BID RF: 0 levothyroxine 50 mcg Tablet 50 mcg PO DAILY RF: 0 aspirin 81 mg Tablet,Chewable 81 mg PO DAILY RF: 0 metoprolol tartrate 25 mg Tablet 25 mg PO BID RF: 0 HRT Cream Base Women 4 mg cream 4 mg topical DAILY RF: 0 Discharge Orders: Discharge Order (Routine); Ordered 04/04/19 Ordered By: Majo Quintanilla Other Ambulatory Orders: Comprehensive Metabolic Panel (Routine) Timeframe: [id number] Facility: [facility] - Location: Lab - Main Lab Ordered By: Majo Quintanilla Referrals: Jose Hinton MD [Physician] - 1 month (You have an follow-up with at [facility] on at 9:00a.m. If, you have any questions or need to reschedule. Please call ) Vicenta Colorado FNP [Nurse Practitioner] - 04/09/19 (You have an follow-up appointment with Vicenta Colorado at [facility] on April 09 at 1:15a.m. Please, arrive at 9:00a.m. to check-in. If, you have any questions or need to reschedule. Please call ) Discharge Diet: Usual diet and Low Cholesterol Discharge Activity: Resume usual activity Patient Instructions: Nitroglycerin (By mouth), Alprazolam (By mouth), Atorvastatin (By mouth), Clopidogrel (By mouth), Chest Pain (DC), Hypothyroidism (DC), Hypertension (DC), Chest Pain Stoplight, Post Angiogram Home Care Instructions Discharge Date/Time: 04/04/19 16:15 Discharge Attestations Time Spent in Discharge Care*: less than 30 min Quality Metrics Clinical Quality Measures During this hospital stay, did patient experience: None Coding Level of Care Code Acute Name Plate Stamping Machine Operator for Joleen Fwd Diagnoses Chest pain R07.2 Chest pain type: precordial pain Hypertension I10 Hypertension type: essential hypertension
[2019-04-04] MEDS: venlafaxine ER (24HR) 150 mg Capsule 300 MG PO (09:35)
[2019-04-04] MEDS: aspirin 81 mg Chew Tablet PO (09:35)
[2019-04-04] MEDS: metoprolol tartrate 25 mg Tablet PO (09:36)
[2019-04-04] MEDS: clopidogrel 75 mg Tablet PO (09:36)
--- NOTE | 2019-04-04 10:00 | PM.PN ---
Subjective Subjective: Interval history: Patient underwent left heart catheterization yesterday. She was found to have subtotal occlusion of the right coronary artery at the proximal to mid segment. Moderately severe disease was noted at the distal artery involving the ostium of the PDA. Patient underwent a PCI of both these lesions by Dr. Bhatia. She had an uneventful postprocedure course. Currently she denies any chest pain or shortness of breath. No new symptoms. Medications: Reviewed: Yes Medication Review Details: Patient is tolerating the Plavix well Vitals/I&O/Wt Last Vital Signs Temp 97.6 F 04/04/19 07:34 Pulse 95 04/04/19 07:34 Resp 16 04/04/19 07:34 BP 155/93 04/04/19 07:34 Pulse Ox 97 04/04/19 07:34 04/03/19 04/04/19 04/04/19 22:59 06:59 14:59 Intake Total 270 / 510 400 / 910 360 / 360 Balance 270 / 510 400 / 910 360 / 360 Physical Exam Narrative: EXAM NARRATIVE: GENERAL: The patient is alert and oriented times three. Not in any acute distress. HEENT: No significant pallor, icterus or lymphadenopathy. The pupils are reactant to light. Oral cavity: There are no mucous membrane lesions. NECK: Trachea appears to be central. No masses noted. No JVD or thyromegaly appreciated. No carotid bruit. RESPIRATORY: Chest is symmetrical. No intercostals muscle retraction or any accessory muscle activation. There is no chest wall tenderness. Breath sounds are heard bilaterally. No rales or rhonchi heard. No evidence of any consolidation. BREASTS: Deferred. HEART: No palpable precordial events. S1 and S2 are normal. No S3 or S4 heard. No pericardial rub or any click heard. ABDOMEN: No vessel pulsations or distention. No tenderness. No organomegaly appreciated. No abdominal bruit. Bowel sounds are normally heard. : Deferred. RECTAL: Deferred. LYMPHATIC: No lymphadenopathy noted in the neck or groin. EXTREMITIES: No edema or cyanosis. No clubbing. The pulses are symmetrical bilaterally. The right radial arterial puncture site appears to have no hematoma or bleeding MUSCULOSKELETAL: No acute joint deformities or swelling SKIN: There are no significant scars or skin rash noted. NEUROPSYCHIATRIC: The patient is alert and oriented x3. Somewhat anxious . the higher functions are grossly within normal limits. No tremors or rigidity noted. Data : 04/04/19 13:12 04/04/19 13:12 Other Labs: A&P Assessment and plan (1) Atherosclerotic heart disease [place] coronary artery w/angina pectoris: Patient with unstable anginal symptoms. Status post cardiac authorization. Status post PCI of the RCA lesions. Currently seems to be stable and asymptomatic. May continue on the current medications. She has not had a BMP yet. If this is acceptable, she may be discharged home today. She need to be seen in the [facility] on next Tuesday by the nurse practitioner. Status: Acute Qualifiers: [place] vs. transplanted heart: [place] heart Qualified Code(s): I25.119 - Atherosclerotic heart disease of [place] coronary artery with unspecified angina pectoris Code(s): I25.119 - Atherosclerotic heart disease of [place] coronary artery with unspecified angina pectoris (2) Hypertension: Patient is currently normotensive. May continue on the current medications. Status: Acute Qualifiers: Hypertension type: essential hypertension Qualified Code(s): I10 - Essential (primary) hypertension Code(s): I10 - Essential (primary) hypertension (3) TIA (transient ischemic attack): Patient has a history of TIA. She has not had a recurrence. She may not require any specific intervention at this point. Status: Acute Code(s): G45.9 - Transient cerebral ischemic attack, unspecified (4) Dyslipidemia: Patient was started on Lipitor. Patient is tolerating medication so far well. May continue on the current medications. Status: Acute Code(s): E78.5 - Hyperlipidemia, unspecified (5) History of hypothyroidism: Clinically she is euthyroid. May be continue on the current medications. Status: Acute Code(s): Z86.39 - Personal history of other endocrine, nutritional and metabolic disease Additional A&P Information BMP today. If the values are acceptable, may be discharged home today Attestations Medical Necessity Statement*: Possible discharge home today Coding Level of Care Code Acute Personnel Quality Assurance Auditor for Antonyg Fwd Diagnoses Atherosclerotic heart disease [place] coronary artery w/angina pectoris I25.119 [place] vs. transplanted heart: [place] heart Hypertension I10 Hypertension type: essential hypertension TIA (transient ischemic attack) G45.9 Dyslipidemia E78.5 History of hypothyroidism Z86.39
[2019-04-04 11:01] VITALS: BP 140/73; PULSE 82; RESP 17; TEMP 36.6; O2SAT 98
[2019-04-04 13:38] LABS: Basophils % 0.5 %; Eosinophils # 0.3 10^3/uL (0.0-0.8); Hematocrit 32.3 % (37.0-47.0); Lymphocytes # 1.6 10^3/uL (0.8-4.8); Lymphocytes % 18.2 %; Mean Corpuscular HGB Conc 34.1 g/dL (30.0-36.0); Mean Corpuscular Hemoglobin 30.6 pg (28.0-34.0); Mean Corpuscular Volume 89.7 fL (81-99); Mean Platelet Volume 9.8 fL (7.4-10.4); Monocytes # 0.8 10^3/uL (0.2-0.9); Monocytes % 9.7 %; Neutrophils # 5.7 10^3/uL (1.8-7.7); Neutrophils % 67.2 %; Nucleated Red Blood Cells % 0 %; Platelet Count 343 10^3/cmm (130-400); Red Cell Distribution Width 13.2 % (12.1-15.1); White Blood Count 8.5 10^3/uL (4.0-10.0)
[2019-04-04 13:54] LABS: Alanine Aminotransferase 72 U/L (0-33); Albumin Level 3.8 g/dL (3.5-5.2); Alkaline Phosphatase 56 IU/L (35-105); Anion Gap 12.8 (5-19); Aspartate Amino Transferase 49 U/L (0-32); Blood Urea Nitrogen 13 mg/dL (8-23); Calcium 9.8 mg/Dl (8.8-10.2); Carbon Dioxide 26 mmol/L (22-29); Chloride 102 mmol/L (98-107); Globulin 2.8 g/dL (1.3-4.6); Glucose 76 mg/dL (74-106); Potassium 3.8 mmol/L (3.5-5.1); Sodium 137 mmol/L (136-145); Total Bilirubin 0.2 mg/dL (0.15-1.2); Total Protein 6.6 g/dL (6.6-8.7)
[2019-04-04 16:14] VITALS: BP 140/73; PULSE 82; RESP 17; TEMP 36.6; O2SAT 98
== END 2019-04-04 16:15 | disposition home or self-care (01) | DRG 247 ==
LOC: ER 23:24 → MEDSURG 04-01 00:50 → CSU 04-03 10:30
PROVIDERS: Internal Medicine; Internal Medicine Cardiovascular Disease; Admitting Provider Family Medicine; Emergency Provider Emergency Medicine; Family Provider Family Medicine; PCP Family Medicine; Visit Provider Student in an Organized Health Care Education/Training Program
PROC: 027135Z Dilation of Coronary Artery, Two Arteries with Two Drug-eluting Intraluminal Devices, Percutaneous Approach (ICD-10-PCS; principal; 2019-04-03 07:05)
DX: I25.110 Atherosclerotic heart disease of native coronary artery with unstable angina pectoris (principal); I25.82 Chronic total occlusion of coronary artery; N18.3 Chronic kidney disease, stage 3 (moderate); E78.5 Hyperlipidemia, unspecified; F32.9 Major depressive disorder, single episode, unspecified; E03.9 Hypothyroidism, unspecified; I12.9 Hypertensive chronic kidney disease with stage 1 through stage 4 chronic kidney disease, or unspecified chronic kidney disease; Z86.73 Personal history of transient ischemic attack (TIA), and cerebral infarction without residual deficits; Z87.891 Personal history of nicotine dependence; F41.0 Panic disorder [episodic paroxysmal anxiety]
CPT/HCPCS: 12345; 36415; 71045; 74176; 78452; 80048; 80053; 80061; 81003; 83036; 83690; 83880; 84443; 84484; 85025; 85347; 85730; 87493; 93005; 93017; 93306; 93452; 99282; A9270; A9500; C1725; C1769; C1874; C1887; C1894; C9600; G0378; J1644; J2001; J2250; J2785; J3010; J3246; J3490; J7030; J7040; Q9967

== ENCOUNTER → 2019-04-09 11:11 | Outpatient (BNVA) | payer MEDICARE, OTHER, SELFPAY | PROVIDERS: Family Provider Family Medicine; PCP Family Medicine; Visit Provider Nurse Practitioner Family | DX: I25.10 Atherosclerotic heart disease of native coronary artery without angina pectoris | CPT/HCPCS: 80048 ==

== ENCOUNTER 2019-05-22 14:30 | Outpatient (CLI) | payer MEDICARE, OTHER, SELFPAY ==
--- NOTE | 2019-05-22 15:00 | USCV_ITS ---
Gisele Ramos Age: 69 Gender: F : 1950 Exam Date: 05/22/2019 14:47 Ordering Phys: Jose Hinton MD ([email or web address]) Technologist: Kathleen Emmanuel [place] [facility] [place]ication: TIA Risk Factors: Previous Vascular Surgery: Right Brachial BP: / Left Brachial BP: / Right Left Velocity (cm/s) Spectral Plaque Velocity (cm/s) Spectral Plaque Syst/Diast Broadening Syst/Diast Broadening 53.90/ 15.30 Prox CCA 45.10 / 11.70 47.90/ 13.30 Mid CCA 50.50 / 14.00 47.50/ 14.90 Distal CCA 53.10 / 14.20 36.40/ 9.10 Prox ICA 22.00 / 9.50 29.60/ 12.50 Mid ICA 37.40 / 17.60 32.50/ 8.00 Distal ICA 63.80 / 22.00 55.00 ECA 50.60 0.76 ICA/CCA 1.26 Antegrade Vertebral Antegrade 33.00/ 11.40 cm/s 39.60/ 12.50 cm/s Tri Subclavian Tri 67.80 56.40 FINDINGS Minimal plaques at the bifurcations bilaterally. Normal Doppler flow velocities in the external and internal carotid arteries bilaterally. Antegrade flow in the vertebral arteries bilaterally. CONCLUSIONS Minimal plaques at the bifurcations bilaterally. No significant stenosis, based on the above findings Dr Jose Hinton MD [facility] (Electronically Signed) Final Date: 24 May 2019 06:12 S
== END 2019-05-22 14:31 | disposition home or self-care (01) ==
PROVIDERS: Family Provider Family Medicine; PCP Family Medicine; Visit Provider Internal Medicine Cardiovascular Disease
DX: G45.9 Transient cerebral ischemic attack, unspecified (principal)
CPT/HCPCS: 93880

== ENCOUNTER 2019-09-24 13:29 | Outpatient (CLI) | payer MEDICARE, OTHER, SELFPAY ==
--- NOTE | 2019-09-24 | XR_ITS ---
WS: [id number] Lumbar spine, AP, lateral, both obliques and L5-S1 spot, 09/24/2019 Clinical Data: LOW BACK PAIN Comparison: None. Findings: There is osteoarthritic change of all the lumbar vertebral bodies. There is a slight levoscoliosis of the lumbar spine. There is degenerative disc narrowing at L1-L2, L2-L3, L3-L4 and L5-S1. The oblique films show no spondylolysis. No compression fractures are seen. No subluxation is present. XR/XR lumbar spine min 4V [id number] Impression: 1. Moderate to severe osteoarthritis of the lumbar vertebral bodies with a levo scoliosis. 2. Multilevel degenerative disc disease.
== END 2019-09-24 13:30 | disposition home or self-care (01) ==
LOC: RADWPI 13:34
PROVIDERS: Family Provider Family Medicine; PCP Family Medicine; Visit Provider Nurse Practitioner Family
DX: G89.29 Other chronic pain (principal); R53.1 Weakness; M47.816 Spondylosis without myelopathy or radiculopathy, lumbar region; M41.86 Other forms of scoliosis, lumbar region; M51.36 Other intervertebral disc degeneration, lumbar region
CPT/HCPCS: 72114

== ENCOUNTER 2019-10-03 12:58 | Outpatient (CLI) | payer MEDICARE, OTHER, SELFPAY ==
--- NOTE | 2019-10-03 13:07 | MR_ITS ---
WS: [id number] MRI LUMBAR SPINE NONCONTRAST TECHNIQUE: Sagittal T1, T2 and STIR imaging. Axial T1 and T2 imaging. CLINICAL INFORMATION: CHRONIC LOW BACK PAIN/ BILATERAL LEG WEAKNESS COMPARISON: None. FINDINGS: Mild lumbar curve convex left. Degenerative disc disease worse at L3-4 with endplate sclerosis. L1-L2: Mild disc bulging with slight effacement of the ventral thecal sac. Moderate facet arthropathy . Mild left foraminal narrowing. L2-L3: Mild disc bulging with mild to moderate central canal stenosis. Impingement subarticular reces s bilaterally. Moderate facet arthropathy. Mild left foraminal narrowing. Right foramen is patent. L3-L4: Disc osteophyte complex endplate ridging. Impingement traversing right L4 nerve root. Mild rig ht and no significant left foraminal narrowing. Mild facet arthropathy. L4-L5: Mild disc bulging and osteophytic ridging. Tiny annular fissure. Foramen are patent. Moderate facet arthropathy. Slight narrowing of the left subarticular recess. L5-S1: Mild disc bulging with osteophytic ridging. Mild left and no significant right foraminal narro wing. Mild to moderate facet arthropathy. Visualized pelvic bony structures: Normal. Paravertebral soft tissues: Normal. Tarlov cysts in the sacrum. MR/MR lumbar spine wo con* [id number] IMPRESSION: 1. Lumbar curve. No acute compression. Degenerative disc disease L3-L4 with en dplate sclerosis. 2. Mild to moderate central canal stenosis L2-3 with narrowing of the subartic ular recess bilaterally. 3. Disc osteophyte complex L3-4 impinges the traversing right L4 nerve root. M ild to moderate right foraminal narrowing. 4. Slight narrowing of the left L4-5 subarticular recess. 5. Mild left L5-S1 foraminal narrowing. 6. Moderate facet arthropathy worse at L2-L3 and L3-L4.
== END 2019-10-03 12:59 | disposition home or self-care (01) ==
LOC: RADSHAW 13:03
PROVIDERS: Family Provider Family Medicine; PCP Family Medicine; Visit Provider Family Medicine
DX: R29.898 Other symptoms and signs involving the musculoskeletal system (principal); M51.36 Other intervertebral disc degeneration, lumbar region; M48.061 Spinal stenosis, lumbar region without neurogenic claudication; M25.78 Osteophyte, vertebrae; M47.816 Spondylosis without myelopathy or radiculopathy, lumbar region
CPT/HCPCS: 72148

== ENCOUNTER 2019-10-22 08:44 | Outpatient (CLI) | payer MEDICARE, OTHER, SELFPAY ==
--- NOTE | 2019-10-22 08:46 | MR_ITS ---
WS: [id number] MRI THORACIC SPINE WITHOUT CONTRAST TECHNIQUE: Sagittal T1, T2 and STIR imaging. Axial T2 imaging. Noncontrast imaging obtained. CLINICAL INFORMATION: PAIN IN THORACIC SPINE COMPARISON: None. FINDINGS: Mild thoracic curve. No acute compression. No high-grade central canal stenosis. Cord signal is clara l. A few small central protrusions in the mid and lower thoracic spine. Small protrusions more promin ent at T2-3, T7-8, T8-9, T9-T10, T12-L1. Mild foraminal narrowing more prominent at right T2-3, left T8-9, bilateral T9-10, bilateral T10-11 a nd bilateral T11-12. Mild central canal stenosis T9-T10 and T10-11. Shallow left pericentral protrusion T7-8. Moderate fac et arthropathy lower thoracic spine. Small right renal cyst. Normal caliber thoracic aorta. MR/MR thoracic spin wo con* [id number] IMPRESSION: 1. Mild thoracic kyphosis. No acute compression. No high-grade central canal s tenosis. 2. Cord signal is normal. 3. Mild central canal stenosis T9-T10 and T10-11. 4. Small protrusions more prominent at T2-3, T7-8, T8-9, T9-T10, T12-L1. 5. Mild bony foraminal narrowing described above.
== END 2019-10-22 08:45 | disposition home or self-care (01) ==
LOC: RADSHAW 08:44
PROVIDERS: PCP Family Medicine; Visit Provider Surgery
DX: M48.04 Spinal stenosis, thoracic region (principal); M51.24 Other intervertebral disc displacement, thoracic region
CPT/HCPCS: 72146

== ENCOUNTER 2020-02-27 09:53 | Outpatient (CLI) | payer MEDICARE, OTHER, SELFPAY ==
--- NOTE | 2020-02-27 10:03 | USCV_ITS ---
Gisele Ramos Age: 69 Gender: F : 1950 Exam Date: 02/27/2020 10:02 Ordering Phys: Jose Hinton MD ([email or web address]) Technologist: Meka Merritt [place]am [place] [facility] [place] Indication: PAIN RT FLANK HISTORY: RT sided pain Diameter (cm) AP x Transverse x Length Velocity (cm/s) Waveform Prox Aorta: 1.93 x 2.42 x 71.30 Mid Aorta: 1.62 x 1.98 x 84.80 Distal Aorta: 1.94 x 1.98 x 62.40 Right Iliac Prox: 0.97 x 1.24 x 70.70 Left Iliac Prox: 1.09 x 1.03 x 61.00 Stent Prox Landing x x Aneurysmal Sac Max x x Lt Lat Sac Dim Rt Lat Sac Dim Stent Dist Landing x x Right Iliac Stent x x Left Iliac Stent x x Right Renal Art Left Renal Art FINDINGS: No AAA seen Mild to moderate diffuse plaques in the abdominal aorta Normal Doppler flow velocities CONCLUSIONS 1. No evidence of abdominal aortic aneurysm. 2. Normal dimensions of the proximal, iliac arteries bilaterally. 3. No evidence of any significant stenosis in the abdominal aorta or proximal common iliac arteries bilaterally 4. Mild to moderate diffuse plaques in the abdominal aorta Dr Jose Hinton MD [facility] (Electronically Signed) Final Date: 28 February 2020 18:33 S
== END 2020-02-27 09:54 | disposition home or self-care (01) ==
LOC: US 09:58
PROVIDERS: Visit Provider Internal Medicine Cardiovascular Disease
DX: Z82.49 Family history of ischemic heart disease and other diseases of the circulatory system (principal); R10.9 Unspecified abdominal pain
CPT/HCPCS: 93978

== ENCOUNTER → 2020-07-21 13:34 | Outpatient (BNVA) | payer MEDICARE, OTHER, SELFPAY | PROVIDERS: PCP Nurse Practitioner Family; Visit Provider Nurse Practitioner Family | DX: J06.9 Acute upper respiratory infection, unspecified (principal); Z20.822 Contact with and (suspected) exposure to COVID-19 | CPT/HCPCS: 87635 ==

== ENCOUNTER 2020-07-24 06:04 | Outpatient (CLI) | payer MEDICARE, OTHER, SELFPAY ==
[2020-07-24 07:01] VITALS: BP 157/79; PULSE 67; RESP 17; O2SAT 97
[2020-07-24 07:05] VITALS: BMI 30.1
--- NOTE | 2020-07-24 07:09 | AMB.MCA ---
Patient Information Symptom onset date: 07/16/20 COVID 19 common symptoms: positive fever(s), chills, cough, non-productive cough, dyspnea, fatigue, body aches, headache(s), nausea and diarrhea Severity: mild Treatment prior to arrival: acetaminophen and ibuprofen [facility] COVID test results: SARS-CoV-2 RNA (RT-PCR) Detected (NOT DETECTED) A 07/21/20 13:34 07/21/20 Criteria/Plan Inclusion/Exclusion Criteria weight >/= 40kg, + direct test </= 10 days ago and symptom onset </= 10 days ago age >/= 65 and age >/= 55 and has diabetes not requiring hospitalization, not requiring oxygen (if not chronically on oxygen) and no increase oxygen requirement (if chronically on oxygen) Patient education patient/family/caregiver received/reviewed fact sheet, Emergency Use Authorization/unapproved drug status discussed with patient/family/caregiver, alternatives to this treatment discussed with patient/family/caregiver, risks and benefits of medication reviewed with patient/family/caregiver, patient/family/caregiver given opportunity for questions, which were answered and patient consents to receiving Monoclonal Antibody Treatment Plan for treatment Meets criteria for Monoclonal Antibody infusion and Does not meet criteria (DO NOT GIVE)
[2020-07-24 08:14] VITALS: BP 159/75; PULSE 67; RESP 18; O2SAT 94
--- NOTE | 2020-07-24 08:14 | PC.NURSE ---
Bam infusion started. Patient resting in bed at this time. No questions or concerns verbalized concerning infusion. Patient stated I'm ready to go home and get some rest . Patient vital signs stable at this time. Blood pressure 156/75, heart rate 68, respirations 18, oxygen saturation 94% room air.
[2020-07-24 08:33] VITALS: PULSE 72; RESP 18; O2SAT 95
[2020-07-24 09:12] VITALS: BP 143/86; PULSE 72; RESP 18; TEMP 37; O2SAT 94
--- NOTE | 2020-07-24 14:22 | DCPLANNER ---
manager endoscopy had message to patient received the BAM infusion. manager endoscopy called to check on patient after receiving the infusion. Patient stated that she was feeling good, she was real tired. Patient stated that some of her symptoms included body aches, she was real tired, she felt weak, she had a cough, and a headache. Patient stated that since the infusion she felt real tired.
== END 2020-07-24 09:20 | disposition home or self-care (01) ==
LOC: ER 06:09
PROVIDERS: PCP Nurse Practitioner Family; Visit Provider Nurse Practitioner Family
DX: U07.1 COVID-19 (principal)

== ENCOUNTER 2022-02-10 17:39 | Emergency (ER) | payer MEDICARE, OTHER, SELFPAY ==
[2022-02-10 17:43] VITALS: BP 166/77; PULSE 97; RESP 15; TEMP 36.8; O2SAT 98; BMI 27.8
--- NOTE | 2022-02-10 18:08 | XRR_ITS ---
PROCEDURE INFORMATION: Exam: XR Chest Exam date and time: 02/10/2022 6:38 PM Age: 71 years old Clinical indication: Shortness of breath; Additional info: Flu TECHNIQUE: Imaging protocol: Radiologic exam of the chest. Views: 1 view. COMPARISON: CR XR chest 1V portable [id number] 03/31/2019 11:26 PM FINDINGS: Lungs: Unremarkable. No consolidation. Pleural spaces: Unremarkable. No pleural effusion. No pneumothorax. Heart/Mediastinum: Unremarkable. No cardiomegaly. Bones/joints: Unremarkable. XR/XR chest 1V portable [id number] IMPRESSION: No acute findings.
--- NOTE | 2022-02-10 20:57 | ED_ITS ---
HPI - General Adult General: Chief complaint: General Medical Stated complaint: Flu like symptoms Time Seen by Provider: 02/10/22 20:07 Source: patient Mode of arrival: ambulatory Limitations: no limitations History of Present Illness: 71-year-old female states she has been having cough congestion along with sore throat over the last 3 days. She states she has been in contact with individuals with the flu states she is got body aches along with malaise she denies any vomiting denies any diarrhea denies any worsening improving factors. 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 balloon angioplasty and stent to mid RCA, prox PDA 03/2019 Benign essential HTN CKD (chronic kidney disease) stage 2, GFR 60-89 ml/min Depression Dyslipidemia History of nonmelanoma skin cancer Hyperlipidemia Hypertension Hypothyroidism Labyrinthitis TIA (transient ischemic attack) Surgical History H/O section Previous back surgery S/P right coronary artery (RCA) stent placement 03/2019 Family History Mother , soon after the open heart surgery CAD (coronary artery disease) Hypertension Father Abdominal aortic aneurysm Hypertension Dementia Brother Cancer Clotting disorder Lung disease Denies family history of Diabetes Chronic kidney disease (CKD) Suicide Anesthesia complication Bleeding disorder Stroke Social History Smoking and tobacco status: former smoker Quit status (tobacco): has quit using tobacco Year quit tobacco: 2012 Alcohol intake: never Lives independently: Yes Household members: spouse Housing: House Physical Exam Const: COMMON NORMALS: no acute distress, patient oriented x3 and healthy appearing HENMT: COMMON NORMALS: normocephalic and atraumatic HEAD & SCALP: normocephalic and atraumatic Eye: COMMON NORMALS: Equal, round and reactive pupils present and EOMs intact bilaterally PUPIL: Yes Equal, round and reactive pupils present Neck/C-Spine: COMMON NORMALS: full ROM and supple Chest: COMMONS NORMALS: normal inspection of the chest and normal palpation of entire chest wall Resp: COMMON NORMALS: normal respiratory effort, No retractions, No use of accessory muscles and clear to auscultation bilaterally AUSCULTATION: clear to auscultation bilaterally Cardio: COMMON NORMALS: regular rate, regular rhythm and No murmurs present (Cardio) RATE: regular rate RHYTHM: regular rhythm GI: COMMON NORMALS: Normal to inspection, nondistended, normoactive bowel sounds present, Soft to palpation, non-tender and no masses PALPATION: Yes Soft to palpation Extremity: COMMON NORMALS: normal to inspection and full ROM Neuro: COMMON NORMALS: patient oriented x3, moves all extremities and no focal motor deficits Psych: COMMON NORMALS: mental status grossly normal, Normal thought process present and cooperative THOUGHT PROCESS: Normal thought process present Skin: COMMON NORMALS: no rashes or lesions noted and no wounds GENERAL SKIN EXAM: no rashes or lesions noted Course Vital Signs: Vital signs: Vital Signs Temperature 98.3 F 02/10/22 17:43 Pulse Rate 97 02/10/22 17:43 Respiratory Rate 15 02/10/22 17:43 Blood Pressure 166/77 02/10/22 17:43 Pulse Oximetry 98 02/10/22 17:43 Oxygen Delivery Me thod 02/10/22 17:43 MDM - General Adult Medical Decision Making Patient presents here with symptoms of a viral upper respiratory infection she had cough congestion body ache she is well-appearing here in no distress x-ray is normal she stable for discharge she is to follow-up PCP and return if worsening. Lab Data 02/10/22 21:20 02/10/22 21:20 Radiology Impressions Chest X-Ray 02/10/22 18:08 IMPRESSION: No acute findings. Laboratory Results WBC 13.0 10^3/uL (4.0-10.0) H 02/10/22 21:20 RBC 4.18 10^6/uL (4.1-5.3) 02/10/22 21:20 Hgb 12.9 g/dL (11.5-15.3) 02/10/22 21:20 Hct 38.6 % (37.0-47.0) 02/10/22 21:20 MCV 92.3 fl (81-99) 02/10/22 21:20 MCH 30.9 pg (28.0-34.0) 02/10/22 21:20 MCHC 33.4 g/dL (30.0-36.0) 02/10/22 21:20 RDW 13.2 % (12.1-15.1) 02/10/22 21:20 Plt Count 325 10^3/cmm (130-400) 02/10/22 21:20 MPV 9.3 fL (7.4-10.4) 02/10/22 21:20 Neut % (Auto) 86.0 % 02/10/22 21:20 Lymph % (Auto) 5.5 % 02/10/22 21:20 [place] % (Auto) 7.6 % 02/10/22 21:20 Eos % (Auto) 0.2 % 02/10/22 21:20 Baso % (Auto) 0.3 % 02/10/22 21:20 Neut # (Auto) 11.20 10^3/uL (1.8-7.7) H 02/10/22 21:20 Lymph # (Auto) 0.7 10^3/uL (0.8-4.8) L 02/10/22 21:20 [place] # (Auto) 1.0 10^3/uL (0.2-0.9) H 02/10/22 21:20 Eos # (Auto) 0.0 10^3/uL (0.0-0.8) 02/10/22 21:20 Baso # (Auto) 0.0 10^3/uL (0.0-0.1) 02/10/22 21:20 Nucleated RBC % (auto) 0 % 02/10/22 21: Nucleated RBCs # 0.0 /100WBC 02/10/22 21:20 Sodium 135 mmol/L (136-145) L 02/10/22 21:20 Potassium 4.2 mmol/L (3.5-5.1) 02/10/22 21:20 Chloride 99 mmol/L (98-107) 02/10/22 21:20 Carbon Dioxide 24 mmol/L (22-29) 02/10/22 21:20 Anion Gap 16.2 (5-19) 02/10/22 21:20 BUN 18 mg/dL (8-23) 02/10/22 21:20 Creatinine 0.9 mg/dL (0.5-0.9) 02/10/22 21:20 GFR Calculation Not Reportable 02/10/22 21:20 Glucose 96 mg/dL (65-115) 02/10/22 21:20 Calculated Osmolality 282 mOsm/kg (285-295) L 02/10/22 21:20 Calcium 9.4 mg/dL (8.5-10.5) 02/10/22 21:20 Total Bilirubin 0.2 mg/dL (0.15-1.2) 02/10/22 21:20 AST 21 U/L (0-32) 02/10/22 21:20 ALT 33 U/L (0-33) 02/10/22 21:20 Alkaline Phosphatase 64 U/L (35-105) 02/10/22 21:20 Total Protein 7.0 g/dL (6.6-8.7) 02/10/22 21:20 Albumin 4.3 g/dL (3.5-5.2) 02/10/22 21:20 Globulin 2.7 g/dL (1.3-4.6) 02/10/22 21:20 Influenza Type A Ag negative (Negative) 02/10/22 20:40 Influenza Type B Ag negative (Negative) 02/10/22 20:40 Discharge Plan Discharge Patient Disposition: Home Clinical Impression: Upper respiratory infection Condition: Stable Prescriptions: No Action atorvastatin 40 mg tablet 40 mg PO BEDTIME 90 Days Qty: 180 1RF nitroglycerin [Nitrostat] 0.4 mg tablet, sublingual 0.4 mg sublingual Q5M PRN Rx Instructions: do not exceed 3 doses per episode metoprolol tartrate 50 mg tablet 50 mg PO DIRECTED Qty: 130 3RF Rx Instructions: Take 1 tablet by mouth every morning and 1/2 tablet by mouth every evening. clopidogrel 75 mg tablet 75 mg PO DAILY Qty: 90 3RF Effexor XR 150 mg Capsule,Extended Release 24hr 150 mg PO BID levothyroxine 50 mcg Tablet 50 mcg PO DAILY aspirin 81 mg Tablet,Chewable 81 mg PO DAILY HRT Cream Base Women 4 mg cream 4 mg topical DAILY alprazolam 0.25 mg Tablet 0.25 mg PO BID PRN (Reason: Anxiety) Qty: 30 0RF Discharge Orders: Discharge ED (Routine); Ordered 02/10/22 Ordered By: [place] Referrals: Karla Mckee, SOAKER HELPER [Primary Care Provider] - 1-3 days Discharge Diet: Advance as tolerated Discharge Activity: Resume usual activity Patient Instructions: Upper Respiratory Infection (ED) Coding Level of Care Code ED Senior [employer] Developer for Joleen Fwd Exam Comprehensive
[2022-02-10 21:02] LABS: Influenza A by IFA negative (Negative); Influenza B by IFA negative (Negative)
[2022-02-10] MEDS: dexamethasone 10 mg/mL INJ IM (21:08)
[2022-02-10] MEDS: ketorolac 30 mg/mL INJ IM (21:08)
[2022-02-10] MEDS: sodium chloride 0.9% 1,000 ML 999 ML IV (21:22)
--- NOTE | 2022-02-10 21:29 | PC.NURSE ---
pt refused covid swab
[2022-02-10 21:32] LABS: Basophils % 0.3 %; Eosinophils % 0.2 %; Hematocrit 38.6 % (37.0-47.0); Hemoglobin 12.9 g/dL (11.5-15.3); Lymphocytes # 0.7 10^3/uL (0.8-4.8); Lymphocytes % 5.5 %; Mean Corpuscular HGB Conc 33.4 g/dL (30.0-36.0); Mean Corpuscular Hemoglobin 30.9 pg (28.0-34.0); Mean Corpuscular Volume 92.3 fl (81-99); Mean Platelet Volume 9.3 fL (7.4-10.4); Monocytes % 7.6 %; Nucleated Red Blood Cells % 0 %; Platelet Count 325 10^3/cmm (130-400); Red Blood Count 4.18 10^6/uL (4.1-5.3); Red Cell Distribution Width 13.2 % (12.1-15.1)
[2022-02-10 22:13] LABS: Alanine Aminotransferase 33 U/L (0-33); Albumin Level 4.3 g/dL (3.5-5.2); Alkaline Phosphatase 64 U/L (35-105); Anion Gap 16.2 (5-19); Aspartate Amino Transferase 21 U/L (0-32); Blood Urea Nitrogen 18 mg/dL (8-23); Calcium 9.4 mg/dL (8.5-10.5); Carbon Dioxide 24 mmol/L (22-29); Chloride 99 mmol/L (98-107); Globulin 2.7 g/dL (1.3-4.6); Glucose 96 mg/dL (65-115); Osmolality Calculated 282 mOsm/kg (285-295); Potassium 4.2 mmol/L (3.5-5.1); Sodium 135 mmol/L (136-145); Total Bilirubin 0.2 mg/dL (0.15-1.2)
== END 2022-02-10 22:40 | disposition home or self-care (01) ==
PROVIDERS: Emergency Provider Emergency Medicine; PCP Nurse Practitioner Family
DX: J06.9 Acute upper respiratory infection, unspecified (principal); Z79.02 Long term (current) use of antithrombotics/antiplatelets; Z79.82 Long term (current) use of aspirin; Z87.891 Personal history of nicotine dependence; I25.10 Atherosclerotic heart disease of native coronary artery without angina pectoris; I12.9 Hypertensive chronic kidney disease with stage 1 through stage 4 chronic kidney disease, or unspecified chronic kidney disease; N18.2 Chronic kidney disease, stage 2 (mild); E78.5 Hyperlipidemia, unspecified; Z86.73 Personal history of transient ischemic attack (TIA), and cerebral infarction without residual deficits
CPT/HCPCS: 71045; 80053; 85025; 87804; 96360; 96372; 99284; J1100; J1885; J7030

== ENCOUNTER → 2022-05-03 10:28 | Outpatient (BNVA) | payer MEDICARE, OTHER, SELFPAY | PROVIDERS: PCP Nurse Practitioner Family; Visit Provider Internal Medicine Cardiovascular Disease | DX: I25.118 Atherosclerotic heart disease of native coronary artery with other forms of angina pectoris (principal); E78.5 Hyperlipidemia, unspecified; Z86.73 Personal history of transient ischemic attack (TIA), and cerebral infarction without residual deficits; Z87.891 Personal history of nicotine dependence; I12.9 Hypertensive chronic kidney disease with stage 1 through stage 4 chronic kidney disease, or unspecified chronic kidney disease; N18.2 Chronic kidney disease, stage 2 (mild) | CPT/HCPCS: 99214 ==

== ENCOUNTER 2022-06-01 10:04 | Outpatient (CLI) | payer MEDICARE, OTHER, SELFPAY ==
[2022-06-01 11:02] VITALS: BMI 29.2
--- NOTE | 2022-06-01 11:36 | ECG_ITS ---
[facility] Test Date: 2022-06-01 Pat Name: Gisele Ramos Department: Room: Gender: Female Helper [employer] Hanging: : 1950 Requested By: Jose Hinton Order Number: [id number] Kashif MD: Jose Hinton M.D. Interpretive Statements NAME OF STUDY: EXERCISE SESTAMIBI STRESS TEST INDICATION: Chest Pain; Arm Fatigue RESULTS TO GIOVANNY NAUN PROCEDURE: The baseline electrocardiogram showed normal sinus rhythm with a poor R wave progression. Low voltage complexes in the precordial leads.. At the baseline, the patient's blood pressure was 163/85 mm Hg with a heart rate of 101. The patient exercised for 3 minutes and 32 seconds on a standard Jose protocol. Patient attained a maximum heart rate of 136 beats per minute(93% of the maximum predicted heart rate) with a blood pressure at the peak exercise of 176/66 mm Hg. The EKG at the peak exercise revealed no significant changes. Patient did not have any chest pain or any significant arrhythmis with the exercise Sestamibi was injected 1 minute prior to the peak exercise During the recovery phase, there were no new changes. Blood pressure at the end of the recovery phase was 171/86 mm Hg with a heart rate of 105 per minute. CONCLUSION: 1. No significant EKG changes with the [treadmill exercise 2. No exercise-induced chest pain or cardiac arrhythmia 3. Impaired exercise tolerance, attained a maximum of 7.0 METs 4. Sestamibi/Sestamibi perfusion results pending; see separate report. Electronically Signed On 06-05-2022 13:40:04 CDT by Jose Hinton M.D. [id number]
--- NOTE | 2022-06-01 11:37 | NMCV_ITS ---
NM kaitlynn perf SPECT r/s* [id number] Gisele Ramos Age: 72 Gender: F : 1950 Exam Date: 06/01/2022 11:37 Ordering Phys: Jose Hinton MD ([email or web address]) Technologist: JASON Mcguire Exam Location: [facility] Indications: CORONARY ANGIOPLASTY STATUS; ATHEROSCLEROTIC HEART DISEASE STRESS TEST Please see separate stress test report in [facility] for full findings IMAGE PROTOCOL Rest/Stress 1 Exercise Day Radiopharmaceutical Dose (mCi) Administration Site Administered by Rest: Tc-99m 10.8 IV JASON Desai Sestamibi Stress:Tc-99m 32.7 IV JASON Desai Sestamibi Rest: 01-Jun-2022 60 Discovery 630 Stress: 01-Jun-2022 15 Discovery 630 Radiopharmaceutical was injected at 85 % maximum heart rate. Images obtained in supine and prone position. SPECT RESULTS Technical Quality: Excellent Raw Data Analysis: Normal Image Corrections: No attenuation or motion correction applied Summed Stress Score: 0 Summed Rest Score: 0 Summed Difference Score: 0 PERFUSION FINDINGS Fairly uniform myocardial tracer uptake with no significant perfusion abnormalities FUNCTIONAL RESULTS (calculated via Gated SPECT) Stress Image LV EF (%): 89 Stress EDV (mL):37 TID: 0.74 Stress ESV (mL):4 FUNCTIONAL FINDINGS: Segmental wall motion analysis revealing no gross wall motion abnormalities IMPRESSIONS 1. Unremarkable Myocardial perfusion imaging 2. Normal LV ejection fraction of 89%. 3. LV wall motion analysis revealing no gross wall motion abnormalities. 4. Normal LV volume 5. Low probability for coronary ischemia, based on the above findings No similar previous studies are available for comparison Dr Jose Hinton MD FAC (Electronically Signed) Final Date: 01 June 2022 21:37 S
[2022-06-01 12:51] VITALS: BP 168/84; PULSE 99
== END 2022-06-01 10:05 | disposition home or self-care (01) ==
LOC: CDL 10:05
PROVIDERS: PCP Nurse Practitioner Family; Visit Provider Internal Medicine Cardiovascular Disease
DX: R07.9 Chest pain, unspecified (principal); Z98.61 Coronary angioplasty status; I25.10 Atherosclerotic heart disease of native coronary artery without angina pectoris
CPT/HCPCS: 36415; 78452; 93017; A9500

== ENCOUNTER → 2022-10-20 14:22 | Outpatient (BNVA) | payer MEDICARE, OTHER, SELFPAY | PROVIDERS: PCP Nurse Practitioner Family; Visit Provider Dermatology | DX: L82.1 Other seborrheic keratosis (principal); L81.4 Other melanin hyperpigmentation; D22.22 Melanocytic nevi of left ear and external auricular canal; L73.8 Other specified follicular disorders; M67.441 Ganglion, right hand; Z08 Encounter for follow-up examination after completed treatment for malignant neoplasm; Z85.828 Personal history of other malignant neoplasm of skin; L57.0 Actinic keratosis | CPT/HCPCS: 17000; 17003; 99213 ==

== ENCOUNTER → 2022-11-22 09:53 | Outpatient (BNVA) | payer MEDICARE, OTHER, SELFPAY | PROVIDERS: PCP Nurse Practitioner Family; Visit Provider Internal Medicine Cardiovascular Disease | DX: I25.119 Atherosclerotic heart disease of native coronary artery with unspecified angina pectoris (principal); Z86.39 Personal history of other endocrine, nutritional and metabolic disease; Z78.9 Other specified health status; Z87.891 Personal history of nicotine dependence; I12.9 Hypertensive chronic kidney disease with stage 1 through stage 4 chronic kidney disease, or unspecified chronic kidney disease; N18.2 Chronic kidney disease, stage 2 (mild) | CPT/HCPCS: 99214 ==

== ENCOUNTER → 2023-06-27 10:02 | Outpatient (BNVA) | payer MEDICARE, SELFPAY | PROVIDERS: PCP Nurse Practitioner Family; Visit Provider Internal Medicine Cardiovascular Disease | DX: I25.119 Atherosclerotic heart disease of native coronary artery with unspecified angina pectoris (principal); E78.5 Hyperlipidemia, unspecified; Z86.39 Personal history of other endocrine, nutritional and metabolic disease; I12.9 Hypertensive chronic kidney disease with stage 1 through stage 4 chronic kidney disease, or unspecified chronic kidney disease; N18.2 Chronic kidney disease, stage 2 (mild); Z87.891 Personal history of nicotine dependence | CPT/HCPCS: 99214 ==

== ENCOUNTER → 2023-10-20 13:42 | Outpatient (BNVA) | payer MEDICARE, SELFPAY | PROVIDERS: PCP Nurse Practitioner Family; Visit Provider Nurse Practitioner Family | DX: L91.8 Other hypertrophic disorders of the skin (principal); D22.22 Melanocytic nevi of left ear and external auricular canal; L73.8 Other specified follicular disorders; M67.441 Ganglion, right hand; Z85.828 Personal history of other malignant neoplasm of skin | CPT/HCPCS: 17110; 99213 ==

== ENCOUNTER → 2023-12-27 09:45 | Outpatient (BNVA) | payer MEDICARE, OTHER, SELFPAY | PROVIDERS: PCP Nurse Practitioner Family; Visit Provider Internal Medicine Cardiovascular Disease | DX: I25.10 Atherosclerotic heart disease of native coronary artery without angina pectoris (principal); E78.5 Hyperlipidemia, unspecified; E03.9 Hypothyroidism, unspecified; Z87.891 Personal history of nicotine dependence; I12.9 Hypertensive chronic kidney disease with stage 1 through stage 4 chronic kidney disease, or unspecified chronic kidney disease; N18.2 Chronic kidney disease, stage 2 (mild); Z86.73 Personal history of transient ischemic attack (TIA), and cerebral infarction without residual deficits | CPT/HCPCS: 99214 ==

== ENCOUNTER → 2024-05-22 14:28 | Outpatient (BNVA) | payer MEDICARE, OTHER, SELFPAY | PROVIDERS: PCP Nurse Practitioner Family; Visit Provider Nurse Practitioner Family | DX: L23.3 Allergic contact dermatitis due to drugs in contact with skin (principal); L24.9 Irritant contact dermatitis, unspecified cause; L82.1 Other seborrheic keratosis; Z08 Encounter for follow-up examination after completed treatment for malignant neoplasm; Z85.828 Personal history of other malignant neoplasm of skin; Z09 Encounter for follow-up examination after completed treatment for conditions other than malignant neoplasm; Z87.2 Personal history of diseases of the skin and subcutaneous tissue; D48.5 Neoplasm of uncertain behavior of skin | CPT/HCPCS: 11102; 99213 ==

== ENCOUNTER → 2024-06-20 14:07 | Outpatient (BNVA) | payer MEDICARE, OTHER, SELFPAY | PROVIDERS: PCP Nurse Practitioner Family; Visit Provider Dermatology | DX: L44.8 Other specified papulosquamous disorders (principal); I78.8 Other diseases of capillaries; L82.1 Other seborrheic keratosis; D22.5 Melanocytic nevi of trunk; D22.4 Melanocytic nevi of scalp and neck; L90.0 Lichen sclerosus et atrophicus; Z08 Encounter for follow-up examination after completed treatment for malignant neoplasm; Z85.828 Personal history of other malignant neoplasm of skin; Z09 Encounter for follow-up examination after completed treatment for conditions other than malignant neoplasm; Z87.2 Personal history of diseases of the skin and subcutaneous tissue; C44.529 Squamous cell carcinoma of skin of other part of trunk; D48.5 Neoplasm of uncertain behavior of skin | CPT/HCPCS: 11102; 17000; 17262; 99213 ==

== ENCOUNTER → 2024-07-17 14:52 | Outpatient (BNVA) | payer MEDICARE, OTHER, SELFPAY | PROVIDERS: PCP Nurse Practitioner Family; Visit Provider Internal Medicine Cardiovascular Disease | DX: I25.10 Atherosclerotic heart disease of native coronary artery without angina pectoris (principal); I12.9 Hypertensive chronic kidney disease with stage 1 through stage 4 chronic kidney disease, or unspecified chronic kidney disease; N18.2 Chronic kidney disease, stage 2 (mild); E78.5 Hyperlipidemia, unspecified; E03.9 Hypothyroidism, unspecified; Z79.82 Long term (current) use of aspirin; Z86.73 Personal history of transient ischemic attack (TIA), and cerebral infarction without residual deficits; Z95.5 Presence of coronary angioplasty implant and graft | CPT/HCPCS: 99214 ==

== ENCOUNTER → 2024-11-20 14:19 | Outpatient (BNVA) | payer MEDICARE, OTHER, SELFPAY | PROVIDERS: PCP Nurse Practitioner Family; Visit Provider Nurse Practitioner Family | DX: I78.8 Other diseases of capillaries (principal); L44.8 Other specified papulosquamous disorders; L82.1 Other seborrheic keratosis; D22.5 Melanocytic nevi of trunk; D22.4 Melanocytic nevi of scalp and neck | CPT/HCPCS: 17110; 99213 ==

== ENCOUNTER → 2025-02-11 11:15 | Outpatient (BNVA) | payer MEDICARE, OTHER, SELFPAY | PROVIDERS: PCP Nurse Practitioner Family; Visit Provider Nurse Practitioner Family | DX: I25.10 Atherosclerotic heart disease of native coronary artery without angina pectoris (principal); I10 Essential (primary) hypertension; E03.9 Hypothyroidism, unspecified; Z86.73 Personal history of transient ischemic attack (TIA), and cerebral infarction without residual deficits | CPT/HCPCS: 99214 ==